=== PATIENT | male | born 1945 | race Caucasian/White ===

== ENCOUNTER 2016-09-11 17:12 | Inpatient (IN) ==
[2016-09-11] MEDS ORDERED: 0.9 % Sodium Chloride 1,000 ML IVC ONE (17:44)
--- NOTE | 2016-09-11 17:47 | Emergency Department Note ---
Disposition Clinical Impression: Small bowel obstruction Disposition: Admitted As Inpatient Condition: Fair Forms: Work/School Release, ED Satisfaction Letter Time of Disposition: 22:21 Abdominal Pain HPI - General Chief Complaint: ED Abdominal Pain Stated Complaint: Small bowel obstruction from [place] Time Seen by Provider: 09/11/16 17:22 Source: patient, family, EMS Mode of arrival: EMS Limitations: no limitations Nursing Notes Reviewed: Yes Vital Signs Reviewed: Yes - History of Present Illness HPI Narrative: Patient was transferred from the [facility] after diagnosis of small bowel truck she was made by clinical exam and x-rays of the abdomen. Pt Subjective Complaint: abdominal pain Onset (ago): week(s) (One week ago) Consistency: constant, Worsening Location: diffuse Pain Severity: severe Pain Scale: 7 Quality: cramping Improves with: nothing Worsens with: nothing Associated symptoms: Reports: nausea, vomiting, constipation. Denies: diarrhea Treatments prior to arrival: other (Had lab work and x-rays done at the [facility] prior to being transferred here.) - Related Data Home Medications Medication Instructions Recorded Confirmed 0.9 % Sodium Chloride Normal Bg 500 ml IV DAILY 09/11/16 09/11/16 Amlodipine Besylate 10 mg PO DAILY 09/11/16 09/11/16 Aspirin Enteric Coated [Aspirin EC] 81 mg PO DAILY 09/11/16 09/11/16 Atorvastatin Calcium [Lipitor] 80 mg PO HS 09/11/16 09/11/16 Insulin ASPART [NovoLOG] 10 unit SQ 1200 09/11/16 09/11/16 Insulin ASPART [NovoLOG] 14 unit SQ QPM 09/11/16 09/11/16 Insulin Glargine [Lantus] 44 unit SQ HS 09/11/16 09/11/16 Metformin HCl [Glucophage] 1,000 mg PO BID 09/11/16 09/11/16 Naproxen [Naprosyn] 500 mg PO BID 09/11/16 09/11/16 Pantoprazole Sodium [Protonix] 40 mg PO DAILY 09/11/16 09/11/16 Tramadol HCl [Ultram] 100 mg PO TID PRN 09/11/16 09/11/16 Vit C/E/Zn/Coppr/Lutein/Zeaxan 1 cap PO BID 09/11/16 09/11/16 [Preservision Areds 2 Softgel] cloNIDine HCl [Clonidine HCl] 0.2 mg PO BID 09/11/16 09/11/16 hydroCHLOROthiazide 25 mg PO DAILY 09/11/16 09/11/16 [Hydrochlorothiazide] metFORMIN [Glucophage] 500 mg PO 1200 09/11/16 09/11/16 Allergies Allergy/AdvReac Type Severity Reaction Status Date / Time No Known Allergies Allergy Verified 09/11/16 17:13 All systems ED: reviewed and negative except as stated. Constitutional: Denies: fever, chills Cardiovascular: Denies: chest pain, palpitations Respiratory: Denies: cough, dyspnea Musculoskeletal: Denies: back pain Integumentary: Denies: rash Neurological: Denies: headache Abdominal Pain PMH - Past Medical History Medical history: Reports: diabetes, hyperlipidemia, hypertension Male Surgical History: Reports: cholecystectomy, Tonsillectomy Psychiatric history: Reports: no psych history - Social History Smoking status: Current every day smoker Alcohol use: Reports: rarely Drug use: Reports: none Physical Exam - General Limitations: no limitations General appearance: alert, in no apparent distress - Head Head exam: atraumatic, normocephalic - Eye Eye exam: Present: normal appearance, PERRL, EOMI - ENT ENT exam: normal exam, normal oropharynx, mucous membranes dry, normal external ear exam - Neck Neck exam: Present: normal inspection, full ROM - Chest Chest inspection: Present: normal inspection, symmetric chest wall rise. Absent : tenderness - Respiratory Respiratory exam: Present: normal lung sounds bilaterally. Absent: respiratory distress - Cardiovascular Cardiovascular exam: Present: regular rate, normal rhythm, normal heart sounds - Abdominal Exam Abdominal exam: Present: tenderness (Mild diffuse tenderness), distention, hypoactive bowel sounds - Extremities Exam Extremities exam: Present: normal inspection, full ROM - Neurological Exam Neurological exam: Present: alert, oriented X3 - Psychiatric Psychiatric exam: Present: normal affect, normal mood - Skin Skin exam: Present: warm, dry. Absent: rash Course Course Narrative: Patient presents with abdominal distention, abdominal pain, nausea and vomiting that has been progressively worsening for the past week. My examination certainly seems consistent with a bowel obstruction. He was seen [place] the [place] prior to [place] and had flat and upright views of the abdomen which showed I will obstruction. I will put the NG in him and empty as much as I can. Then we will put oral contrast down that NG tube in order to get a CT scan to help us understand where this obstruction is coming from. The only surgeries had in the past was a laparoscopic cholecystectomy so I am concerned about pathology that is causing this obstruction. - Reevaluation(s) Reevaluation #1: CAT scan shows partial small bowel disruption. There is no indication for acute surgery. NG tube is in place and draining. We will arrange to have the patient omitted to the hospital. Time: 22:20 - Consultations Consultation #1: Roland hospitalist - I discussed this with the hospitalist at length. He is accepted the patient for admission. Time: 22:21 Vital Signs Temperature 98.9 F 09/11/16 17:16 Pulse Rate 97 09/11/16 17:16 Respiratory Rate 18 09/11/16 17:16 Blood Pressure 154/95 09/11/16 17:16 O2 Sat by Pulse Oximetry 93 09/11/16 17:16 Temperature 98.9 F 09/11/16 17:16 Pulse Rate 86 09/11/16 21:25 Respiratory Rate 18 09/11/16 21:25 Blood Pressure 170/77 09/11/16 21:25 O2 Sat by Pulse Oximetry 88 09/11/16 21:25 Oxygen Delivery Oxygen Delivery Room Air Abdominal Pain - Medical Records Medical records reviewed: Yes I reviewed the patient's medical records. - Lab Data Lab results reviewed: Yes I reviewed the patient's lab results. Lab results narrative: I reviewed the labs from the outside facility. - Radiology Data Radiology results reviewed: Yes I reviewed the patient's radiology results.
[2016-09-11] MEDS ORDERED: Naloxone 0.4 MG/ML INJ IVP PRN (22:29)
[2016-09-11] MEDS ORDERED: Dextrose Gel 15 GM PO PRN ×2 (22:35)
[2016-09-11] MEDS ORDERED: *HR* Dextrose 50 % in Water (Syg) 50 ML SYRINGE IVP PRN (22:35)
[2016-09-11] MEDS ORDERED: D5% in Water 1,000 ML IVC PRN (22:35)
[2016-09-11] MEDS ORDERED: Albuterol 2.5 MG/3 ML NEBULIZER IH PRN (23:23)
[2016-09-11] MEDS ORDERED: NON-FORMULARY MEDICATION 1 EACH EACH (Insulin Glargine [Lantus] 30 UNIT) SQ SCH (23:30)
--- NOTE | 2016-09-11 23:30 | Internal Med History&Physical ---
Date of Encounter: 09/11/16 Time of Encounter: 23:27 Assessment and Plan (1) Small bowel obstruction Current visit: Yes Status: Acute 1 patient has been experiencing abdominal pain distention nausea and vomiting approximate [address] of abdomen concerning for partial small bowel obstruction. Will make patient nothing by mouth 2 we will give IV fluids 3 NG to low wall suction 4 monitor electrolytes and replace as needed 5 consult surgery-order placed will need to be followed up with day team 6 Zofran for nausea 7 morphine for pain (2) Hypertension Current visit: No Status: Chronic 1 patient is presently nothing by mouth we will hold home medications. Hydralazine IV as needed for systolic greater than 160 Qualifiers: Hypertension type: essential hypertension Qualified Code(s): I10 - Essential (primary) hypertension (3) Diabetes Current visit: Yes Status: Chronic 1 patient is nothing by mouth Accu-Cheks every 6 hours with slight scale insulin we will give 30 units of Levemir tonight due to elevated blood sugar. We will continue to monitor. Qualifiers: Diabetes mellitus type: type 2 Diabetes mellitus complication status: without complication Diabetes mellitus oysterman insulin use: with longterm use Qualified Code(s): E11.9 - Type 2 diabetes mellitus without complications ; Z79.4 - nursing home (current) use of insulin (4) DVT prophylaxis Current visit: Yes [facility]: [facility] Internal Medicine - H&P: HPI Chief complaint: abd pain Admitted From: Emergency Dept Plans for Post Hospital Care: Home History of present illness: Mr. Castañeda is a 70 year old male past history of diabetes chronic back pain. Esophagus hypertension current smoker. According to the patient approximately one week ago, last , he began to experience abdominal pain and distention he then began to have episodes of vomiting since approximately once a day vomiting bile. He was unable to eat or drink without vomiting. Prior last he was having daily formed bowel movements now has been having very small loose stools with decrease amounts of flatus. He denies any fevers or chills chest pain shortness of breath. He presented to the [facility] with the above complaints. At the [facility] x-rays obtained flat upright views of the abdomen which showed obstruction. Patient was transferred to this facility for further workup and evaluation. Upon arrival to the ER and the NG was placed which returned green bile. He was given oral contrast via NG CT of abdomen was obtained . The CT results were concerning for partial small bowel obstruction. Lab work was obtained was no leukocytosis glucose is elevated at 409. Patient was given IV fluids he has been admitted for further workup and evaluation. Presently the patient does not appear to be in any respiratory distress. He denies any chest or abdominal pain. His lung sounds have faint expiratory wheezes throughout heart sounds are regular S1 and S2 with no rubs or clicks gallops murmurs noted. Abdomen is distended nontender with hypoactive bowel sounds. He is hemodynamically stable at this time review this case with Dr. Joyce who agrees with plan. Past Med Surg Social Fam HX - Past Medical History Medical history: diabetes, hyperlipidemia, hypertension Psychiatric history: no psych history - Social History Smoking Status: Current every day smoker Smokeless Tobacco Status: No Alcohol use: rarely Drug use: none - Additional Family History Additional family history: Reviewed and noncontributory Internal Medicine - H&P: Meds 0.9 % Sodium Chloride [place] Bg 500 ml IV DAILY 09/11/16 [History] Amlodipine Besylate 10 mg PO DAILY 09/11/16 [History] Aspirin Enteric Coated [Aspirin EC] 81 mg PO DAILY 09/11/16 [History] Atorvastatin Calcium [Lipitor] 80 mg PO HS 09/11/16 [History] Insulin ASPART [NovoLOG] 10 unit SQ 1200 09/11/16 [History] Insulin ASPART [NovoLOG] 14 unit SQ QPM 09/11/16 [History] Insulin Glargine [Lantus] 44 unit SQ HS 09/11/16 [History] Metformin HCl [Glucophage] 1,000 mg PO BID 09/11/16 [History] Naproxen [Naprosyn] 500 mg PO BID 09/11/16 [History] Pantoprazole Sodium [Protonix] 40 mg PO DAILY 09/11/16 [History] Tramadol HCl [Ultram] 100 mg PO TID PRN 09/11/16 [History] Vit C/E/Zn/Coppr/Lutein/Zeaxan [Preservision Areds 2 Softgel] 1 cap PO BID 09/11 [History] cloNIDine HCl [Clonidine HCl] 0.2 mg PO BID 09/11/16 [History] hydroCHLOROthiazide [Hydrochlorothiazide] 25 mg PO DAILY 09/11/16 [History] metFORMIN [Glucophage] 500 mg PO 1200 09/11/16 [History] Allergies No Known Allergies Allergy (Verified 09/11/16 17:13) All Systems PM: A 10-system review of systems was performed and is negative for pertinent findings except as documented above in the HPI. - Constitutional Constitutional: no chills, no fever(s), no night sweats - EENT Eyes: no change in vision, no discharge, no pain, no photophobia - Cardiovascular Cardiovascular ROS IM: no chest pain, no diaphoresis, no dyspnea, no lightheadedness, no palpitations, no syncope - Respiratory Respiratory: no cough, no dyspnea, no wheezing, no excessive phlegm production - Gastrointestinal Gastrointestinal: abdominal pain, constipation, early satiety, nausea, vomiting - Musculoskeletal Musculoskeletal ROS IM: no numbness, no tingling - Integumentary Integumentary IM: no rash, no unusual bruising - Neurological Neurological ROS: no confusion, no convulsions, no focal weakness, no numbness, no tingling, no tremor(s) - Hematologic/Lymphatic Hematologic/Lymphatic: no easy bruising - Constitutional Vitals: Temp Pulse Resp BP Pulse Ox 98.9 F 86 18 177/89 88 09/11/16 17:16 09/11/16 21:25 09/11/16 23:21 09/11/16 23:21 09/11/16 21:25 General appearance: Present: A&O X 3, answers questions appropriately - Head Head exam: Present: atraumatic, normocephalic - Eye Eye exam: Present: PERRL, conjuntiva pink, sclera anicteric - Neck Neck exam general surgery: Present: supple, trachea midline. Absent: lymphadenopathy - Respiratory Respiratory exam: Present: wheezes. Absent: accessory muscle use, rales, rhonchi - Cardiovascular Cardiovascular exam: Present: RRR, +S1, +S2. Absent: diastolic murmur, gallop, rubs, systolic murmur - GI/Abdominal GI/Abdominal exam: Present: distended, firm, hypoactive bowel sounds, no peritoneal signs. Absent: tenderness - Extremities Exam Extremities exam: Present: warm, radial pulses palpable and symetrical. Absent : calf tenderness, cyanotic, pedal edema - Neurological Exam Neurological exam: Present: CN II-XII intact, oriented X3, no focal deficits. Absent: pronater drift, facial droop, speech deficit - Skin Skin exam: Present: dry, intact Internal Med - H&P Results - Labs Labs: Lab work from [facility] drawn today CBC WBC 16.5 hemoglobin 16 hematocrit 47 platelets 263 CBC sodium 134 potassium 3.7 chloride 94 CO2 28 BUN 31 crit 1.30 glucose 40 9 GFR 57.8 - Diagnostic Studies Other Images Additional comments: Abdomen/Pelvis CT 09/11/16 19:50 IMPRESSION: 1. Dilatation of a long segment of small bowel with air-fluid level, with a possible transition point in right abdomen. Findings are worrisome for at least a partial small bowel obstruction. 2. Extensive sigmoid diverticulosis. No evidence of diverticulitis. 3. Normal appendix. 4. Prostatomegaly. 5. Status post cholecystectomy. D/ / 09/11/2016 20:22:09 Daryn Roberts MD / raheel Interpreting Provider: Daryn Roberts MD
[2016-09-12] MEDS: 0.9 % Sodium Chloride 1,000 ML IVC SCH ×3 (00:15→18:23)
[2016-09-12] MEDS: Insulin DETEMIR 100 UNIT/ML X5UNITS SQ SCH ×2 (00:23→20:50)
[2016-09-12] MEDS: Insulin LISPRO 300 UNITS/3 ML VIAL SQ SCH ×4 (00:23→18:19)
[2016-09-12] MEDS ORDERED: Nitroglycerin 1 INCH/GM PACKET TP ONE (03:04)
[2016-09-12] MEDS: Ipratropium/Albuterol Neb 3 ML IH SCH ×4 (04:15→22:42)
[2016-09-12] MEDS: *HR* Enoxaparin 40 MG/0.4 ML SYRINGE SQ SCH (05:34)
[2016-09-12] MEDS: Pantoprazole 40 MG VIAL IVP SCH (05:34)
[2016-09-12 06:20] LABS: Basophils # 0.1 K/mcL (0.0-0.2); Basophils % 0.7 %; Eosinophils # 0.5 K/mcL (0.0-0.6); Eosinophils % 4.4 %; Hematocrit 41.4 % (37.5-50.1); Hemoglobin 14.3 g/dL (12.9-16.9); Immature Granulocytes % 0.3 % (0-4); Lymphocytes # 2.2 K/mcL (0.6-4.6); Lymphocytes % 19.4 %; Mean Corpuscular HGB Conc 34.5 g/dL (31.6-35.5); Mean Corpuscular Hemoglobin 30.1 pg (28.0-33.3); Mean Corpuscular Volume 87.2 fL (83.0-100.0); Mean Platelet Volume 12.1 fL (9.4-12.4); Monocytes # 1.3 K/mcL (0.0-1.3); Monocytes % 11.6 %; Neutrophils # 7.1 K/mcL (1.6-8.9); Platelet Count 209 K/mcL (140-400); Red Blood Count 4.75 M/mcL (4.19-5.50); Red Cell Distribution Width 12.5 % (11.5-14.5); Segmented Neutrophils % 63.6 %
[2016-09-12 06:35] LABS: BUN/Creatinine Ratio 26 (6-26); Blood Urea Nitrogen 23 mg/dL (8-26); Calcium 8.9 mg/dL (8.6-10.8); Carbon Dioxide 31 mEq/L (19-29); Chloride 100 mEq/L (98-109); Glucose 166 mg/dL (70-99); Magnesium 1.2 mg/dL (1.6-2.6); Osmolality,Calculated 297 (280-300); Potassium 3.2 mEq/L (3.5-4.5); Sodium 140 mEq/L (136-145); eGFR For African Americans > 60 (> 60); eGFR For Non-African Americans > 60 (> 60)
[2016-09-12] MEDS ORDERED: Magnesium Sulfate 1 GM in D5% in Water 100 ML IVPB ONE (08:11)
[2016-09-12] MEDS: Potassium Chloride Elixir 20 MEQ/15 ML UDC PO SCH (09:22)
--- NOTE | 2016-09-12 10:29 | Internal Med Progress Note ---
Date of Encounter: 09/12/16 Time of Encounter: 10:25 - Assessment and plan (1) Small bowel obstruction Current Visit: Yes Status: Acute Assessment and plan: Patient clinically better today, with no abdominal pain, nausea or vomiting. Last bowel movement was yesterday morning, reports passing gas now. CT abdomen shows partial small bowel obstruction. Currently NG placed, surgery has been consulted, will observe for now. possible clamp NG tube and watch, will wait for surgical recommendation. continue iVF.keep NPO (2) Hypertension Current Visit: No Status: Chronic Assessment and plan: mildly elevated, 2/2 NPO status, hydralazine prn for systoilc >180 Qualifiers: Hypertension type: essential hypertension Qualified Code(s): I10 - Essential (primary) hypertension (3) Diabetes Current Visit: Yes Status: Chronic Assessment and plan: Continue Levemir and sliding scale insulin. Monitor fingersticks. Qualifiers: Diabetes mellitus type: type 2 Diabetes mellitus complication status: without complication Diabetes mellitus terminologist insulin use: with terminologist use Qualified Code(s): E11.9 - Type 2 diabetes mellitus without complications ; Z79.4 - long-term (current) use of insulin - Subjective Interval history: Patient admitted for partial small bowel obstructions, CT does not show any mechanical obstruction. Reports one-week history of diarrhea and vomiting, possible ileus secondary to post viral infection. Status post NG placement yesterday, reports that the abdominal pain is better, no nausea and the time of my assessment. Surgery has been consulted, patient nothing by mouth for now. - Constitutional Vitals: Temp Pulse Resp BP Pulse Ox 97.5 F L 79 18 173/64 93 09/12/16 06:50 09/12/16 06:50 09/12/16 06:50 09/12/16 06:50 09/12/16 06:50 General appearance: Present: A&O X 3, answers questions appropriately Exam: - Head Head exam: Present: atraumatic, normocephalic - Eye Eye exam: Present: PERRL, conjuntiva pink, sclera anicteric - Neck Neck exam general surgery: Present: supple, trachea midline. Absent: lymphadenopathy - Respiratory Respiratory exam: Present: wheezes. Absent: accessory muscle use, rales, rhonchi - Cardiovascular Cardiovascular exam: Present: RRR, +S1, +S2. Absent: diastolic murmur, gallop, rubs, systolic murmur - GI/Abdominal GI/Abdominal exam: Present: Mildly distended, nontender, bowel sounds are heard. Absent: tenderness - Extremities Exam Extremities exam: Present: warm, radial pulses palpable and symetrical. Absent : calf tenderness, cyanotic, pedal edema - Neurological Exam Neurological exam: Present: CN II-XII intact, oriented X3, no focal deficits. Absent: pronater drift, facial droop, speech deficit - Skin Skin exam: Present: dry, intact Internal Medicine: Result - Labs CBC & Chem 7: 09/12/16 05:40 09/12/16 05:40 Labs: Short CBC 09/12/16 Range/Units 05:40 WBC 11.2 H (4.3-11.1) K/mcL Hgb 14.3 (12.9-16.9) g/dL Hct 41.4 (37.5-50.1) % Plt Count 209 (140-400) K/mcL Neutrophils # 7.1 (1.6-8.9) K/mcL BMP 09/12/16 05:40 Sodium 140 Potassium 3.2 L Chloride 100 Carbon Dioxide 31 H BUN 23 Creatinine 0.90 Glucose 166 H Calcium 8.9 Consult Discharge Plan - Plan [facility]errals: [facility] [Primary Care Provider] -
[2016-09-12] MEDS: amLODIPine 5 MG TABLET PO SCH (13:31)
[2016-09-12] MEDS: cloNIDine HCl 0.1 MG TABLET PO SCH (20:25)
[2016-09-13] MEDS: Insulin LISPRO 300 UNITS/3 ML VIAL SQ SCH ×4 (01:23→17:03)
[2016-09-13] MEDS: *HR* Morphine 2 MG/ML SYRINGE IVP PRN ×2 (02:37→17:04)
[2016-09-13] MEDS ORDERED: 0.9 % Sodium Chloride 1,000 ML ONE (02:41)
[2016-09-13] MEDS: Ondansetron 4 MG/2 ML VIAL IVP PRN ×2 (02:44→17:10)
[2016-09-13] MEDS: 0.9 % Sodium Chloride 1,000 ML IVC SCH ×3 (02:52→17:06)
[2016-09-13] MEDS ORDERED: *HR* HYDROmorphone 2 MG/ML SYRINGE IVP ONE (03:21)
[2016-09-13] MEDS: Ipratropium/Albuterol Neb 3 ML IH SCH ×4 (04:16→22:00)
[2016-09-13] MEDS: *HR* Enoxaparin 40 MG/0.4 ML SYRINGE SQ SCH (06:25)
[2016-09-13] MEDS: Pantoprazole 40 MG VIAL IVP SCH (06:25)
[2016-09-13 08:11] LABS: Basophils % 0.3 %; Eosinophils # 0.1 K/mcL (0.0-0.6); Eosinophils % 0.8 %; Hematocrit 42.3 % (37.5-50.1); Hemoglobin 14.4 g/dL (12.9-16.9); Immature Granulocytes % 0.4 % (0-4); Lymphocytes # 1.4 K/mcL (0.6-4.6); Lymphocytes % 9.5 %; Mean Corpuscular Hemoglobin 30.7 pg (28.0-33.3); Mean Corpuscular Volume 90.2 fL (83.0-100.0); Mean Platelet Volume 11.4 fL (9.4-12.4); Monocytes # 1.1 K/mcL (0.0-1.3); Monocytes % 7.3 %; Platelet Count 191 K/mcL (140-400); Red Blood Count 4.69 M/mcL (4.19-5.50); Red Cell Distribution Width 12.7 % (11.5-14.5); Segmented Neutrophils % 81.7 %
[2016-09-13 08:27] LABS: BUN/Creatinine Ratio 15 (6-26); Calcium 8.5 mg/dL (8.6-10.8); Carbon Dioxide 24 mEq/L (19-29); Chloride 106 mEq/L (98-109); Glucose 173 mg/dL (70-99); Osmolality,Calculated 290 (280-300); Potassium 3.3 mEq/L (3.5-4.5); Sodium 138 mEq/L (136-145); eGFR For African Americans > 60 (> 60); eGFR For Non-African Americans > 60 (> 60)
[2016-09-13 08:28] LABS: Blood Urea Nitrogen 12 mg/dL (8-26)
[2016-09-13] MEDS: cloNIDine HCl 0.1 MG TABLET PO SCH ×2 (08:32→20:37)
[2016-09-13] MEDS: Aspirin Enteric Coated 81 MG Tablet PO SCH (08:32)
[2016-09-13] MEDS: Potassium Chloride Elixir 20 MEQ/15 ML UDC PO SCH (08:33)
[2016-09-13] MEDS: amLODIPine 5 MG TABLET PO SCH (08:33)
--- NOTE | 2016-09-13 11:21 | Internal Med Progress Note ---
Date of Encounter: 09/13/16 Time of Encounter: 11:17 - Assessment and plan (1) Small bowel obstruction Current Visit: Yes Status: Acute Assessment and plan: severe abdominal pain after bowel movement last night repeat CT with signs of persistent partial to complete SBO with signs concerning for possible mesenteric ischemia abdominal pain is better he says this morn, he got a dose of dilaudid this morning, still rates his pain as 6. lactic acid is normal, less likely mesenteric ischemia Currently NPO, surgery has been consulted, will observe for now. will wait for surgical recommendation. continue iVF.keep NPO (2) Hypertension Current Visit: No Status: Chronic Assessment and plan: mildly elevated, 2/2 NPO status, hydralazine prn for systoilc >180 Qualifiers: Hypertension type: essential hypertension Qualified Code(s): I10 - Essential (primary) hypertension (3) Diabetes Current Visit: Yes Status: Chronic Assessment and plan: Continue Levemir and sliding scale insulin. Monitor fingersticks. Qualifiers: Diabetes mellitus type: type 2 Diabetes mellitus complication status: without complication Diabetes mellitus energy conservation specialist insulin use: with chcf use Qualified Code(s): E11.9 - Type 2 diabetes mellitus without complications ; Z79.4 - [facility] (current) use of insulin - Subjective Interval history: Patient admitted for partial small bowel obstructions, CT does not show any mechanical obstruction. NGT was accidentally removed yesterday, started on clear liquids after passing gas and a bowel movement. However at night he had severe abdominal pain, CT abdomen was repeated by the , showed persistent partial to complete small bowel up structure and with signs concerning for mesenteric ischemia. This morning he still rates his abdominal pain as 6, but says it is better than last night, denies any nausea or vomiting. Surgery has been consulted, patient nothing by mouth for now. - Constitutional Vitals: Temp Pulse Resp BP Pulse Ox 98.0 F 90 20 165/66 91 09/13/16 07:52 09/13/16 07:52 09/13/16 10:54 09/13/16 07:52 09/13/16 10:54 General appearance: Present: A&O X 3, answers questions appropriately Exam: - Head Head exam: Present: atraumatic, normocephalic - Eye Eye exam: Present: PERRL, conjuntiva pink, sclera anicteric - Neck Neck exam general surgery: Present: supple, trachea midline. Absent: lymphadenopathy - Respiratory Respiratory exam: Present: wheezes. Absent: accessory muscle use, rales, rhonchi - Cardiovascular Cardiovascular exam: Present: RRR, +S1, +S2. Absent: diastolic murmur, gallop, rubs, systolic murmur - GI/Abdominal GI/Abdominal exam: Present: Mildly distended, mild tenderness in marcelo epigasric region, bowel sounds are heard. - Extremities Exam Extremities exam: Present: warm, radial pulses palpable and symetrical. Absent : calf tenderness, cyanotic, pedal edema - Neurological Exam Neurological exam: Present: CN II-XII intact, oriented X3, no focal deficits. Absent: pronater drift, facial droop, speech deficit - Skin Skin exam: Present: dry, intact Internal Medicine: Result - Labs CBC & Chem 7: 09/13/16 08:02 09/13/16 08:02 Labs: Short CBC 09/13/16 Range/Units 08:02 WBC 14.6 H (4.3-11.1) K/mcL Hgb 14.4 (12.9-16.9) g/dL Hct 42.3 (37.5-50.1) % Plt Count 191 (140-400) K/mcL Neutrophils # 12.0 H (1.6-8.9) K/mcL BMP 09/13/16 08:02 Sodium 138 Potassium 3.3 L Chloride 106 Carbon Dioxide 24 BUN 12 D Creatinine 0.80 Glucose 173 H Calcium 8.5 L - Impressions Impressions Abdomen/Pelvis CT 09/13/16 03:22 IMPRESSION: 1. Continued findings of small-bowel obstruction, early complete or partial with transition in the right lower quadrant. 2. There is now portal venous gas seen within the liver and in the mesenteric veins. No pneumatosis is identified and a definite source is not identified. Correlate with any evidence of bowel ischemia. 3. Colonic diverticulosis without evidence of acute diverticulitis. D/ / Bill Mcguire MD / Bill Mcguire MD Interpreting Provider: Bill Mcguire MD Consult Discharge Plan - Plan [facility]errals: [facility] [Primary Care Provider] -
[2016-09-14] MEDS: Insulin LISPRO 300 UNITS/3 ML VIAL SQ SCH ×4 (00:19→18:40)
[2016-09-14] MEDS: 0.9 % Sodium Chloride 1,000 ML IVC SCH ×2 (03:38→15:35)
[2016-09-14] MEDS: Ipratropium/Albuterol Neb 3 ML IH SCH ×2 (04:25→11:05)
[2016-09-14] MEDS: *HR* Enoxaparin 40 MG/0.4 ML SYRINGE SQ SCH (06:33)
[2016-09-14] MEDS: Pantoprazole 40 MG VIAL IVP SCH (06:33)
[2016-09-14 08:04] LABS: BUN/Creatinine Ratio 19 (6-26); Blood Urea Nitrogen 17 mg/dL (8-26); Calcium 8.1 mg/dL (8.6-10.8); Carbon Dioxide 22 mEq/L (19-29); Chloride 110 mEq/L (98-109); Glucose 161 mg/dL (70-99); Osmolality,Calculated 293 (280-300); Potassium 3.6 mEq/L (3.5-4.5); Sodium 139 mEq/L (136-145); eGFR For African Americans > 60 (> 60); eGFR For Non-African Americans > 60 (> 60)
[2016-09-14 08:12] LABS: Basophils # 0.1 K/mcL (0.0-0.2); Basophils % 0.4 %; Eosinophils # 0.2 K/mcL (0.0-0.6); Eosinophils % 1.8 %; Hematocrit 40.3 % (37.5-50.1); Hemoglobin 13.4 g/dL (12.9-16.9); Immature Granulocytes % 0.3 % (0-4); Lymphocytes # 1.1 K/mcL (0.6-4.6); Lymphocytes % 9.1 %; Mean Corpuscular HGB Conc 33.3 g/dL (31.6-35.5); Mean Corpuscular Volume 90.2 fL (83.0-100.0); Mean Platelet Volume 11.8 fL (9.4-12.4); Monocytes # 1.6 K/mcL (0.0-1.3); Monocytes % 13.1 %; Platelet Count 173 K/mcL (140-400); Red Blood Count 4.47 M/mcL (4.19-5.50); Red Cell Distribution Width 12.8 % (11.5-14.5); Segmented Neutrophils % 75.3 %
[2016-09-14] MEDS: amLODIPine 5 MG TABLET PO SCH (09:13)
[2016-09-14] MEDS: cloNIDine HCl 0.1 MG TABLET PO SCH ×2 (09:13→21:52)
[2016-09-14] MEDS: Aspirin Enteric Coated 81 MG Tablet PO SCH (09:13)
[2016-09-14] MEDS: Potassium Chloride Elixir 20 MEQ/15 ML UDC PO SCH (09:14)
--- NOTE | 2016-09-14 12:28 | General Surgery Consult Note ---
Date of Encounter: 09/14/16 Time of Encounter: 11:00 Assessment and Plan (1) Abnormal abdominal CT scan Current Visit: Yes Status: Acute The patient appears to have a resolving partial bowel obstruction that has been complicated by portal venous gas. I cannot identify on physical examination or on CAT scan any areas of small bowel necrosis. He has a very mild leukocytosis. I think it is reasonable to assume that he has had no episode of enterocolitis that has resulted in some mucosal necrosis. I would start him on ciprofloxacin and Flagyl. I would repeat his physical examination. Since his exam is totally normal and he is not having any abdominal pain over and start him on clear liquids. I will be glad to follow along with you. History of Present Illness Consult date: 09/14/16 Reason for consult: abdominal pain History of present illness: The patient has had about one week of abdominal pain. Initially had a good deal of diarrhea and this tapered off. His abdominal pain was crampy and central in nature. This is associated with nausea and no vomiting. He was evaluated with CAT scan of the abdomen and admitted to the hospital. He initially had some pneumatosis of the bowel and a follow-up CAT scan demonstrated portal venous gas. His abdominal pain subsided and today on physical examination he is not complaining of any abdominal pain at all. He has no nausea or vomiting. He is passing flatus. He is hungry. I personally reviewed the CAT scan of the abdomen. I cannot identify any areas of small bowel inflammation or necrosis. He does have dilated proximal small bowel in comparison to his distal small bowel. There is air in the portal venous system. I do not see any pneumatosis Past Med Surg Social Fam HX - Past Medical History Medical history: diabetes, hyperlipidemia, hypertension Psychiatric history: no psych history - Past Surgical History Surgical History: cholecystectomy - Social History Smoking Status: Current every day smoker Packs per day: 0.5 Smokeless Tobacco Status: No Alcohol use: rarely Drug use: none - Family History Mother Living Status: Hx Family Cardiac Disorders: Yes Medications and Allergies 0.9 % Sodium Chloride [place] Bg 500 ml IV DAILY 09/11/16 [History] Amlodipine Besylate 10 mg PO DAILY 09/11/16 [History] Aspirin Enteric Coated [Aspirin EC] 81 mg PO DAILY 09/11/16 [History] Atorvastatin Calcium [Lipitor] 80 mg PO HS 09/11/16 [History] Insulin ASPART [NovoLOG] 10 unit SQ 1200 09/11/16 [History] Insulin ASPART [NovoLOG] 14 unit SQ QPM 09/11/16 [History] Insulin Glargine [Lantus] 44 unit SQ HS 09/11/16 [History] Metformin HCl [Glucophage] 1,000 mg PO BID 09/11/16 [History] Naproxen [Naprosyn] 500 mg PO BID 09/11/16 [History] Pantoprazole Sodium [Protonix] 40 mg PO DAILY 09/11/16 [History] Tramadol HCl [Ultram] 100 mg PO TID PRN 09/11/16 [History] Vit C/E/Zn/Coppr/Lutein/Zeaxan [Preservision Areds 2 Softgel] 1 cap PO BID 09/11 [History] cloNIDine HCl [Clonidine HCl] 0.2 mg PO BID 09/11/16 [History] hydroCHLOROthiazide [Hydrochlorothiazide] 25 mg PO DAILY 09/11/16 [History] metFORMIN [Glucophage] 500 mg PO 1200 09/11/16 [History] Allergies No Known Allergies Allergy (Verified 09/11/16 17:13) Review of Systems All systems PM: A 10-system review of systems was performed and is negative for pertinent findings except as documented above in the HPI. General Surgery Exam Initial Vital Signs Temp Pulse Resp BP Pulse Ox 98.9 F 97 18 154/95 93 09/11/16 17:16 09/11/16 17:16 09/11/16 17:16 09/11/16 17:16 09/11/16 17:16 - General physical appearance well developed, well nourished, no distress - Neck no masses, no bruits, trachea midline, no lymphadectomy, no venous distension - Respiratory normal expansion, normal respiratory effort, clear to percussion, clear to auscultation - Cardiovascular Cardiovascular exam: Present: RRR, no murmurs/rubs/gallops - Abdomen Abdomen general surgery: Present: bowel sounds present, soft, non tender Hernia: Present: none - Neurologic Present: CN 2-12 grossly intact, normal coordination, normal sensation - Psychiatric Psychiatric general surgery: Present: appropriate, oriented to person, oriented to place, oriented to time, speech is normal, memory intact Exam Initial Vital Signs Temp Pulse Resp BP Pulse Ox 98.9 F 97 18 154/95 93 09/11/16 17:16 09/11/16 17:16 09/11/16 17:16 09/11/16 17:16 09/11/16 17:16 Results - Labs 09/14/16 07:44 09/14/16 07:44 Abnormal lab results WBC 11.9 K/mcL (4.3-11.1) H 09/14/16 07:44 Neutrophils # 9.0 K/mcL (1.6-8.9) H 09/14/16 07:44 Monocytes # 1.6 K/mcL (0.0-1.3) H 09/14/16 07:44 Chloride 110 mEq/L (98-109) H 09/14/16 07:44 Glucose 161 mg/dL (70-99) H 09/14/16 07:44 POC Glucose 157 (58-89) H 09/14/16 11:20 Calcium 8.1 mg/dL (8.6-10.8) L 09/14/16 07:44 Magnesium 1.2 mg/dL (1.6-2.6) L 09/12/16 05:40 Diabetes panel 09/14/16 Range/Units 07:44 Sodium 139 (136-145) mEq/L Potassium 3.6 (3.5-4.5) mEq/L Chloride 110 H (98-109) mEq/L Carbon Dioxide 22 (19-29) mEq/L BUN 17 (8-26) mg/dL Creatinine 0.89 (0.72-1.25) mg/dL Glucose 161 H (70-99) mg/dL Calcium 8.1 L (8.6-10.8) mg/dL Calcium panel 09/14/16 Range/Units 07:44 Calcium 8.1 L (8.6-10.8) mg/dL Pituitary panel 09/14/16 Range/Units 07:44 Sodium 139 (136-145) mEq/L Potassium 3.6 (3.5-4.5) mEq/L Chloride 110 H (98-109) mEq/L Carbon Dioxide 22 (19-29) mEq/L BUN 17 (8-26) mg/dL Creatinine 0.89 (0.72-1.25) mg/dL Glucose 161 H (70-99) mg/dL Calcium 8.1 L (8.6-10.8) mg/dL Adrenal panel 09/14/16 Range/Units 07:44 Sodium 139 (136-145) mEq/L Potassium 3.6 (3.5-4.5) mEq/L Chloride 110 H (98-109) mEq/L Carbon Dioxide 22 (19-29) mEq/L BUN 17 (8-26) mg/dL Creatinine 0.89 (0.72-1.25) mg/dL Glucose 161 H (70-99) mg/dL Calcium 8.1 L (8.6-10.8) mg/dL All other labs normal. - Imaging CT scan - abdomen: image reviewed (I personally reviewed the CAT scan of the abdomen. He does have portal venous air. His white blood cell count is 11, 900. There are no findings that suggest small bowel necrosis. There is a diameter difference between his proximal and distal small bowel) Consult Discharge Plan - Plan [facility]errals: [facility] [Primary Care Provider] -
[2016-09-14] MEDS ORDERED: metroNIDAZOLE 500 MG TABLET PO SCH (13:00)
--- NOTE | 2016-09-14 13:53 | Internal Med Progress Note ---
Date of Encounter: 09/14/16 Time of Encounter: 13:50 - Assessment and plan (1) Small bowel obstruction Current Visit: Yes Status: Acute Assessment and plan: repeat CT with signs of persistent partial to complete SBO with signs concerning for possible mesenteric ischemia He denies any abdominal pain at this time, no nausea or vomiting. lactic acid is normal, general surgery has been consulted, recommended antibiotics at this time for concern of possible enterocolitis leading to mucosal necrosis, noted as portal vein gas in the CT scan, Given asymptomatic, we will start clear liquid diet today. Advanced the diet gradually as tolerated. Appreciate surgical recommendations. (2) Hypertension Current Visit: No Status: Chronic Assessment and plan: mildly elevated, 2/2 NPO status, hydralazine prn for systoilc >180 Qualifiers: Hypertension type: essential hypertension Qualified Code(s): I10 - Essential (primary) hypertension (3) Diabetes Current Visit: Yes Status: Chronic Assessment and plan: Continue Levemir and sliding scale insulin. Monitor fingersticks. Qualifiers: Diabetes mellitus type: type 2 Diabetes mellitus complication status: without complication Diabetes mellitus parts counterman insulin use: with parts counterman use Qualified Code(s): E11.9 - Type 2 diabetes mellitus without complications ; Z79.4 - jail (current) use of insulin - Subjective Interval history: Patient admitted for partial small bowel obstructions, CT does not show any mechanical obstruction. repeat CT abdomen showed persistent partial to complete small bowel up structure and with signs concerning for mesenteric ischemia. Has been nothing by mouth for 1 day, denies any abdominal pain, nausea or vomiting at this time. Gen. surgery has been consulted for possible concern of mesenteric ischemia. - Constitutional Vitals: Temp Pulse Resp BP Pulse Ox 97.7 F 82 18 159/67 93 09/14/16 11:18 09/14/16 11:18 09/14/16 11:18 09/14/16 11:18 09/14/16 11:18 General appearance: Present: A&O X 3, answers questions appropriately Exam: Head Head exam: Present: atraumatic, normocephalic - Eye Eye exam: Present: PERRL, conjuntiva pink, sclera anicteric - Neck Neck exam general surgery: Present: supple, trachea midline. Absent: lymphadenopathy - Respiratory Respiratory exam: Present: wheezes. Absent: accessory muscle use, rales, rhonchi - Cardiovascular Cardiovascular exam: Present: RRR, +S1, +S2. Absent: diastolic murmur, gallop, rubs, systolic murmur - GI/Abdominal GI/Abdominal exam: Present: Mildly distended, nontender,, bowel sounds are heard. - Extremities Exam Extremities exam: Present: warm, radial pulses palpable and symetrical. Absent : calf tenderness, cyanotic, pedal edema - Neurological Exam Neurological exam: Present: CN II-XII intact, oriented X3, no focal deficits. Absent: pronater drift, facial droop, speech deficit - Skin Skin exam: Present: dry, intact Internal Medicine: Result - Labs CBC & Chem 7: 09/14/16 07:44 09/14/16 07:44 Labs: Short CBC 09/14/16 Range/Units 07:44 WBC 11.9 H (4.3-11.1) K/mcL Hgb 13.4 (12.9-16.9) g/dL Hct 40.3 (37.5-50.1) % Plt Count 173 (140-400) K/mcL Neutrophils # 9.0 H (1.6-8.9) K/mcL BMP 09/14/16 07:44 Sodium 139 Potassium 3.6 Chloride 110 H Carbon Dioxide 22 BUN 17 Creatinine 0.89 Glucose 161 H Calcium 8.1 L Consult Discharge Plan - Plan [facility]errals: [facility] [Primary Care Provider] -
[2016-09-14] MEDS: metroNIDAZOLE 500 MG TABLET PO SCH (18:40)
[2016-09-15] MEDS: Insulin LISPRO 300 UNITS/3 ML VIAL SQ SCH (01:14)
[2016-09-15] MEDS: 0.9 % Sodium Chloride 1,000 ML IVC SCH (01:17)
[2016-09-15] MEDS: Pantoprazole 40 MG VIAL IVP SCH (05:34)
[2016-09-15 07:01] LABS: Basophils # 0.1 K/mcL (0.0-0.2); Basophils % 0.6 %; Eosinophils # 0.9 K/mcL (0.0-0.6); Eosinophils % 9.1 %; Hematocrit 37.3 % (37.5-50.1); Hemoglobin 12.6 g/dL (12.9-16.9); Immature Granulocytes % 0.5 % (0-4); Lymphocytes # 1.4 K/mcL (0.6-4.6); Lymphocytes % 14.5 %; Mean Corpuscular HGB Conc 33.8 g/dL (31.6-35.5); Mean Corpuscular Hemoglobin 30.1 pg (28.0-33.3); Mean Corpuscular Volume 89.2 fL (83.0-100.0); Mean Platelet Volume 12.1 fL (9.4-12.4); Monocytes % 10.4 %; Neutrophils # 6.4 K/mcL (1.6-8.9); Platelet Count 145 K/mcL (140-400); Red Blood Count 4.18 M/mcL (4.19-5.50); Red Cell Distribution Width 12.7 % (11.5-14.5); Segmented Neutrophils % 64.9 %
[2016-09-15 07:26] LABS: BUN/Creatinine Ratio 13 (6-26); Blood Urea Nitrogen 10 mg/dL (8-26); Calcium 7.6 mg/dL (8.6-10.8); Carbon Dioxide 20 mEq/L (19-29); Chloride 110 mEq/L (98-109); Glucose 190 mg/dL (70-99); Osmolality,Calculated 288 (280-300); Potassium 3.4 mEq/L (3.5-4.5); Sodium 137 mEq/L (136-145); eGFR For African Americans > 60 (> 60); eGFR For Non-African Americans > 60 (> 60)
[2016-09-15] MEDS ORDERED: Insulin LISPRO 300 UNITS/3 ML VIAL SQ SCH ×2 (07:30→21:00)
[2016-09-15] MEDS: *HR* Enoxaparin 40 MG/0.4 ML SYRINGE SQ SCH (08:36)
[2016-09-15] MEDS: Aspirin Enteric Coated 81 MG Tablet PO SCH (08:38)
[2016-09-15] MEDS: Potassium Chloride Elixir 20 MEQ/15 ML UDC PO SCH (08:38)
[2016-09-15] MEDS: cloNIDine HCl 0.1 MG TABLET PO SCH (08:38)
[2016-09-15] MEDS: metroNIDAZOLE 500 MG TABLET PO SCH (08:38)
[2016-09-15] MEDS: amLODIPine 5 MG TABLET PO SCH (08:38)
--- NOTE | 2016-09-15 08:44 | General Surgery Progress Note ---
Date of Encounter: 09/15/16 Time of Encounter: 08:00 - Assessment and Plan (1) Abnormal abdominal CT scan Current Visit: Yes Status: Acute The patient appears to have a resolving partial bowel obstruction that has been complicated by portal venous gas. I cannot identify on physical examination or on CAT scan any areas of small bowel necrosis. He has a very mild leukocytosis. I think it is reasonable to assume that he has had no episode of enterocolitis that has resulted in some mucosal necrosis. I would start him on ciprofloxacin and Flagyl. I would repeat his physical examination. Since his exam is totally normal and he is not having any abdominal pain over and start him on clear liquids. I will be glad to follow along with you. 09/15/2016. The patient has no abdominal pain at all. He is having bowel movements. I think it is reasonable to advance his diet. There is no evidence of surgical abdomen Subjective Narrative: The patient has no complaints of abdominal pain. He is having bowel movements. His white blood cell count is normalized. He is not having any fevers. At this point I think it is reasonable to advance his diet. There is no evidence of surgical abdomen Objective Vital Signs - Last 8 Hours Temp Pulse Resp BP Pulse Ox 09/15/16 07:20 98.4 F 78 16 172/70 93 09/15/16 05:19 97.7 F 68 18 149/66 93 Intake and Output 09/14/16 09/15/16 09/15/16 23:59 07:59 15:59 Intake Total 1040 / 1040 1000 / 1000 Output Total 0 / 0 450 / 450 Balance 1040 / 1040 550 / 550 Intake: IV Fluids 1000 / 1000 0.9 % Sodium Chloride 1, 1000 / 1000 000 ML @ 100 mls/hr IVC . Q10H NIKHIL Rx#:[id number] Oral 1040 / 1040 0 / 0 Output: Urine 0 / 0 450 / 450 Other: # Voids 2 Weight 92.487 kg Blood Glucose* 167 176 Patient Weight 09/15/16 23:59 Weight 92.487 kg - General physical appearance well developed, well nourished, obese - Respiratory normal expansion, normal respiratory effort, clear to percussion, clear to auscultation - Cardiovascular Cardiovascular exam: Present: RRR, distant heart sounds - Abdomen Abdomen: Present: bowel sounds present, soft, non tender - Labs 09/15/16:37 09/15/16 06:37 Diabetes panel 09/15/16 Range/Units 06:37 Sodium 137 (136-145) mEq/L Potassium 3.4 L (3.5-4.5) mEq/L Chloride 110 H (98-109) mEq/L Carbon Dioxide 20 (19-29) mEq/L BUN 10 (8-26) mg/dL Creatinine 0.78 (0.72-1.25) mg/dL Glucose 190 H (70-99) mg/dL Calcium 7.6 L (8.6-10.8) mg/dL Calcium panel 09/15/16 Range/Units 06:37 Calcium 7.6 L (8.6-10.8) mg/dL Pituitary panel 09/15/16 Range/Units 06:37 Sodium 137 (136-145) mEq/L Potassium 3.4 L (3.5-4.5) mEq/L Chloride 110 H (98-109) mEq/L Carbon Dioxide 20 (19-29) mEq/L BUN 10 (8-26) mg/dL Creatinine 0.78 (0.72-1.25) mg/dL Glucose 190 H (70-99) mg/dL Calcium 7.6 L (8.6-10.8) mg/dL Adrenal panel 09/15/16 Range/Units 06:37 Sodium 137 (136-145) mEq/L Potassium 3.4 L (3.5-4.5) mEq/L Chloride 110 H (98-109) mEq/L Carbon Dioxide 20 (19-29) mEq/L BUN 10 (8-26) mg/dL Creatinine 0.78 (0.72-1.25) mg/dL Glucose 190 H (70-99) mg/dL Calcium 7.6 L (8.6-10.8) mg/dL Consult Discharge Plan - Plan [facility]errals: [facility] [Primary Care Provider] -
[2016-09-15 11:04] VITALS: BP 144/65
--- NOTE | 2016-09-15 12:00 | Discharge Summary ---
Date of Encounter: 09/15/16 Time of Encounter: 11:58 - Discharge Diagnosis (1) Small bowel obstruction Priority: Primary Status: Acute (2) Hypertension Priority: Secondary Status: Chronic Qualifiers: Hypertension type: essential hypertension Qualified Code(s): I10 - Essential (primary) hypertension (3) Diabetes Priority: Secondary Status: Chronic Qualifiers: Diabetes mellitus type: type 2 Diabetes mellitus complication status: without complication Diabetes mellitus half-way insulin use: with guest services lead use Qualified Code(s): E11.9 - Type 2 diabetes mellitus without complications ; Z79.4 - outside machinist (current) use of insulin - Discharge Medications Prescriptions: Calcium Carbonate [Calcium] 500 mg PO TID 7 Days Ciprofloxacin [Cipro] 500 mg PO BID 5 Days metroNIDAZOLE [Flagyl] 500 mg PO TIDWM 5 Days Potassium Chloride Elixir [Potassium Chloride] 40 meq PO DAILY 2 Days Home Medications: 0.9 % Sodium Chloride [place] Bg 500 ml IV DAILY 09/11/16 [History] Amlodipine Besylate 10 mg PO DAILY 09/11/16 [History] Aspirin Enteric Coated [Aspirin EC] 81 mg PO DAILY 09/11/16 [History] Atorvastatin Calcium [Lipitor] 80 mg PO HS 09/11/16 [History] Insulin ASPART [NovoLOG] 10 unit SQ 1200 09/11/16 [History] Insulin ASPART [NovoLOG] 14 unit SQ QPM 09/11/16 [History] Insulin Glargine [Lantus] 44 unit SQ HS 09/11/16 [History] Metformin HCl [Glucophage] 1,000 mg PO BID 09/11/16 [History] Naproxen [Naprosyn] 500 mg PO BID 09/11/16 [History] Pantoprazole Sodium [Protonix] 40 mg PO DAILY 09/11/16 [History] Tramadol HCl [Ultram] 100 mg PO TID PRN 09/11/16 [History] Vit C/E/Zn/Coppr/Lutein/Zeaxan [Preservision Areds 2 Softgel] 1 cap PO BID 09/11 [History] cloNIDine HCl [Clonidine HCl] 0.2 mg PO BID 09/11/16 [History] hydroCHLOROthiazide [Hydrochlorothiazide] 25 mg PO DAILY 09/11/16 [History] metFORMIN [Glucophage] 500 mg PO 1200 09/11/16 [History] Calcium Carbonate [Calcium] 500 mg PO TID 7 Days 09/15/16 [Rx] Ciprofloxacin [Cipro] 500 mg PO BID 5 Days 09/15/16 [Rx] Potassium Chloride Elixir [Potassium Chloride] 40 meq PO DAILY 2 Days 09/15/16 [ Rx] metroNIDAZOLE [Flagyl] 500 mg PO TIDWM 5 Days 09/15/16 [Rx] Allergies/Adverse Reactions: Allergies No Known Allergies Allergy (Verified 09/11/16 17:13) Procedures/tests Complete & Pending: Procedures Performed prior 72 hours Category Date Time Status CT abd pelvis wo no iv no oral [CT] Stat Cat Scan 09/13/16 03:22 Completed Date of admission: 09/11/16 23:23 [facility]: [facility] Consults: 09/13/16 09:37 Consult to Surgery [CONS] Routine Consulting Provider: Herman Foreman Surgical Reason for Consult: please evaluate this patient presenting with SBO, had severe pain last night, repeat CT showing signs concerning for ?meseteric ischemia. Call Completed: Yes Discharging clinician: Myriam Diaz Anticipated date of discharge: 09/15/16 - Patient Status Disposition: Home, Self-Care Condition: Fair Functional capacity at discharge: independent ambulation Overall status at discharge: patient is back to baseline - Discharge Instructions Follow Up With: [facility] [Primary Care Provider[facility] - ([facility] will call patient with date and time. Thank you) - Diet and Activity Activity: resume usual activities as tolerated Diet: other (soft diet for 1 week) Interval History: Mr. Castañeda is a 70 year old male past history of diabetes chronic back pain. Esophagus hypertension current smoker. According to the patient approximately one week ago, last , he began to experience abdominal pain and distention he then began to have episodes of vomiting since approximately once a day vomiting bile. He presented to the [facility] , At the [facility] x-rays obtained flat upright views of the abdomen which showed obstruction. Patient was transferred to this facility for further workup and evaluation. Upon arrival to the ER and the NG was placed which returned green bile. He was given oral contrast via NG CT of abdomen was obtained . The CT results were concerning for partial small bowel obstruction. Lab work was obtained was no leukocytosis glucose is elevated at 409. Patient was given IV fluids he has been admitted for further workup and evaluation. He was initiated with conservative management, however the second day he had severe abdominal pain which necessitated repeat CAT scan of the abdomen. The patient appears to have a resolving partial bowel obstruction, however a follow-up CAT scan demonstrated portal venous gas . General surgery was consulted. He has a very mild leukocytosis. It was assumed that he probably had an episode of enterocolitis that has resulted in some mucosal necrosis. He was started on ciprofloxacin and Flagyl. He was observed on soft diet, he did not have any worsening of abdominal pain or nausea or vomiting. His abdominal exam is soft and nontender, he had good bowel movements. He is being discharged today on oral Cipro and Flagyl to complete 5 days, he will follow up with his PCP at [facility] after discharge. Hospital course: Mr. Castañeda is a 70 year old male - Time Spent with Patient Total time spent providing and/or coordinating discharge services: - Constitutional Vitals: Temp Pulse Resp BP Pulse Ox 98.1 F 76 16 144/65 95 09/15/16 10:58 09/15/16 10:58 09/15/16 10:58 09/15/16 10:58 09/15/16 10:58 General appearance: Present: A&O X 3, answers questions appropriately Exam: - General physical appearance well developed, well nourished, no distress - Neck no masses, no bruits, trachea midline, no lymphadectomy, no venous distension - Respiratory normal expansion, normal respiratory effort, clear to percussion, clear to auscultation - Cardiovascular Cardiovascular exam: Present: RRR, no murmurs/rubs/gallops - Abdomen Abdomen general surgery: Present: bowel sounds present, soft, non tender Hernia: Present: none - Neurologic Present: CN 2-12 grossly intact, normal coordination, normal sensation - Psychiatric Psychiatric general surgery: Present: appropriate, oriented to person, oriented to place, oriented to time, speech is normal, memory intact
== END 2016-09-15 13:35 | disposition home or self-care (01) | DRG 390 ==
LOC: 3BNU 17:12 → EMEROO 17:12 → 3ANU 23:22
PROVIDERS: ADMIT Internal Medicine; ATTEND Internal Medicine Endocrinology, Diabetes & Metabolism

== ENCOUNTER 2018-03-14 16:21 | Inpatient (IN) ==
[2018-03-14] MEDS ORDERED: Isovue-370 500 ML INFUS..BTL IV ONE (16:53)
[2018-03-14] MEDS ORDERED: 0.9 % Sodium Chloride 1,000 ML IVC ONE (16:54)
--- NOTE | 2018-03-14 16:55 | Emergency Department Note ---
Disposition Clinical Impression: Small bowel obstruction Disposition: Admitted As Inpatient Condition: Fair Time of Disposition: 20:41 Abdominal Pain HPI - General Stated Complaint: bowel obstrucation Time Seen by Provider: 03/14/18 16:40 Nursing Notes Reviewed: Yes Vital Signs Reviewed: Yes - History of Present Illness HPI Narrative: 72-year-old male presents from the OR to this facility for continued evaluation of lower abdominal pain. Patient has a six-day history of lower abdominal intense sharp cramping present with any by mouth intake. When he has no by mouth intake, his pain subsides substantially. His stools have become loose, nonbloody, no melena. Decrease in frequency of passing flatness. He does have nausea with vomiting. His symptoms were identical in character and not as severe in intensity as previous small bowel obstruction. Patient has a history of remote cholecystectomy otherwise no abdominal surgical history. Acute abdominal x-ray series from the OR interpreted by OR radiology as small bowel obstruction. He was transferred to this facility for surgical consultation. PMH: Hypertension, hyperlipidemia, diabetes mellitus on both oral and insulin. GERD. Antiplatelet: Aspirin 81 mg daily Anticoagulant: None ROS: Positive: As above Negative: Fever, chills, chest pains, palpitations, back pain, dysuria, hematemesis, hematochezia, melena - Related Data Home Medications Medication Instructions Recorded Confirmed 0.9 % Sodium Chloride [place] Bg 500 ml IV DAILY 09/11/16 09/11/16 Amlodipine Besylate 10 mg PO DAILY 09/11/16 09/11/16 Aspirin Enteric Coated [Aspirin EC] 81 mg PO DAILY 09/11/16 09/11/16 Atorvastatin Calcium [Lipitor] 80 mg PO HS 09/11/16 09/11/16 Insulin ASPART [NovoLOG] 10 unit SQ 1200 09/11/16 09/11/16 Insulin ASPART [NovoLOG] 14 unit SQ QPM 09/11/16 09/11/16 Insulin Glargine [Lantus] 44 unit SQ HS 09/11/16 09/11/16 Metformin HCl [Glucophage] 1,000 mg PO BID 09/11/16 09/11/16 Naproxen [Naprosyn] 500 mg PO BID 09/11/16 09/11/16 Pantoprazole Sodium [Protonix] 40 mg PO DAILY 09/11/16 09/11/16 Tramadol HCl [Ultram] 100 mg PO TID PRN 09/11/16 09/11/16 Vit C/E/Zn/Coppr/Lutein/Zeaxan 1 cap PO BID 09/11/16 09/11/16 [Preservision Areds 2 Softgel] cloNIDine HCl [Clonidine HCl] 0.2 mg PO BID 09/11/16 09/11/16 hydroCHLOROthiazide 25 mg PO DAILY 09/11/16 09/11/16 [Hydrochlorothiazide] metFORMIN [Glucophage] 500 mg PO 1200 09/11/16 09/11/16 Previous Rx's Medication Instructions Recorded Calcium Carbonate [Calcium] 500 mg PO TID 7 Days tablet 09/15/16 Ciprofloxacin [Cipro] 500 mg PO BID 5 Days tablet 09/15/16 Potassium Chloride Elixir 40 meq PO DAILY 2 Days udc 09/15/16 [Potassium Chloride] metroNIDAZOLE [Flagyl] 500 mg PO TIDWM 5 Days tablet 09/15/16 Allergies Allergy/AdvReac Type Severity Reaction Status Date / Time No Known Allergies Allergy Verified 09/11/16 17:13 All systems ED: reviewed and negative except as stated. Review of Systems: As Per HPI Abdominal Pain PMH - Past Medical History Medical history: Reports: diabetes, hyperlipidemia, hypertension Male Surgical History: Reports: cholecystectomy, Tonsillectomy Psychiatric history: Reports: no psych history - Social History Smoking status: Current every day smoker Alcohol use: Reports: rarely Drug use: Reports: none Physical Exam Vital Signs Reviewed General: Patient is alert, oriented, and in no acute distress. Head: atraumatic, normocephalic Eye: normal appearance, PERRL, EOMI, no scleral icterus, no conjunctival injection ENT: mucous membranes moist, normal external ear exam Neck: normal inspection, trachea midline, full ROM Chest: normal inspection, symmetric chest rise Respiratory: Good respiratory effort. Bilateral breath sounds are clear without wheezing, crackles, or rhonchi. Cardiovascular: Regular rate and rhythm. No clicks, rubs, gallops, or murmors. Normal heart sounds. Abdomen: Bowel sounds present normoactive x-4 quadrants. Abdomen is soft, nondistended. Mild epigastric tenderness. No guarding or rebound. No organomegaly noted. Musculoskeletal: Spontaneously moving all extremities. Skin: warm, dry, intact. Neuro: GCS 15. Alert and oriented x4. Psych: Patient's affect is appropriate for situation. Course Course Narrative: Given patient's history of previous small bowel obstruction as well as his symptoms being identical in character but not as severe in intensity as his prior small bowel obstruction, current clinical concern is for small bowel obstruction. Patient is agreeable to CT abdomen pelvis with IV and oral contrast. His exam is surprisingly minimally tender in the hypogastrium. In reviewing records from his previous admission for small bowel obstruction, his abdomen was not markedly tender at that time either. CT abdomen pelvis with IV and oral contrast demonstrates small bowel obstruction . Patient exam continues to be unimpressive. He has not vomited while in the emergency department. We will hold on NG tube at this time. I discussed the patient with on-call general surgery, Dr. Marie. We discussed the patient's history, physical exam, workup findings, currently nonsurgical abd omen. She is agreeable to the plan of care at this time and will see the patient is consultation tomorrow. I discussed the above with the admitting hospitalist, Dr. Domingo, who agrees to accept the patient for small bowel stricture with general surgery on consult. Abdomen/Pelvis CT 03/14/18 19:00 IMPRESSION: Moderate distal small bowel obstruction without evident point of transition. Terminal ileum normal in size. Normal appendix. 2 large chronic nonobstructing calculi inferiorly in the left kidney. Additional nonobstructing calculi. Moderate to severe diverticulosis of the left colon. Marked enlargement of the prostate. Heavy atherosclerotic calcifications.. D/ / James Perdomo MD / James Perdomo MD Interpreting Provider: James Perdomo MD Vital Signs Temperature 97.7 F 03/14/18 17:08 Pulse Rate 108 03/14/18 17:08 Respiratory Rate 15 03/14/18 17:08 Blood Pressure 185/71 03/14/18 17:08 O2 Sat by Pulse Oximetry 98 03/14/18 17:08 Temperature 97.7 F 03/14/18 17:08 Pulse Rate 88 03/14/18 20:18 Respiratory Rate 18 03/14/18 20:18 Blood Pressure 160/66 03/14/18 20:18 O2 Sat by Pulse Oximetry 95 03/14/18 20:18 Oxygen Delivery Oxygen Delivery Room Air Abdominal Pain - Lab Data Result diagrams: 03/14/18 17:00 03/14/18 17:00 Lab Results 03/14/18 03/14/18 Range/Units 17:00 17:00 WBC 7.5 (4.3-11.1) K/mcL RBC 4.57 (4.19-5.50) M/mcL Hgb 13.6 (12.9-16.9) g/dL Hct 39.9 (37.5-50.1) % MCV 87.3 (83.0-100.0) fL MCH 29.8 (28.0-33.3) pg MCHC 34.1 (31.6-35.5) g/dL RDW 12.6 (11.5-14.5) % Plt Count 217 (140-400) K/mcL MPV 12.1 (9.4-12.4) fL Immature Gran % 0.3 (0-4) % Seg Neutrophils % 56.6 % Lymphocytes % 24.2 % Monocytes % 15.4 % Eosinophils % 2.7 % Basophils % 0.8 % Neutrophils # 4.2 (1.6-8.9) K/mcL Lymphocytes # 1.8 (0.6-4.6) K/mcL Monocytes # 1.2 (0.0-1.3) K/mcL Eosinophils # 0.2 (0.0-0.6) K/mcL Basophils # 0.1 (0.0-0.2) K/mcL Sodium 135 L (136-145) mEq/L Potassium 3.5 (3.5-5.1) mEq/L Chloride 104 (98-107) mEq/L Carbon Dioxide 22 L (23-29) mEq/L BUN 43 H (8-23) mg/dL Creatinine 1.22 (0.70-1.30) mg/dL Est GFR ( Amer) > 60 (> 60) Est GFR (Non-Af Amer) 58 L (> 60) BUN/Creatinine Ratio 35 H (6-26) Glucose 276 H (70-105) mg/dL Calculated Osmolality 301 H (280-300) Calcium 8.7 (8.6-10.3) mg/dL
[2018-03-14 17:19] LABS: Hematocrit 39.9 % (37.5-50.1); Hemoglobin 13.6 g/dL (12.9-16.9); Immature Granulocytes % 0.3 % (0-4); Lymphocytes % 24.2 %; Mean Corpuscular HGB Conc 34.1 g/dL (31.6-35.5); Mean Corpuscular Hemoglobin 29.8 pg (28.0-33.3); Mean Corpuscular Volume 87.3 fL (83.0-100.0); Mean Platelet Volume 12.1 fL (9.4-12.4); Platelet Count 217 K/mcL (140-400); Red Blood Count 4.57 M/mcL (4.19-5.50); Red Cell Distribution Width 12.6 % (11.5-14.5); Segmented Neutrophils % 56.6 %
[2018-03-14 17:20] LABS: Basophils # 0.1 K/mcL (0.0-0.2); Basophils % 0.8 %; Eosinophils # 0.2 K/mcL (0.0-0.6); Eosinophils % 2.7 %; Lymphocytes # 1.8 K/mcL (0.6-4.6); Monocytes # 1.2 K/mcL (0.0-1.3); Monocytes % 15.4 %; Neutrophils # 4.2 K/mcL (1.6-8.9)
--- NOTE | 2018-03-14 17:27 | Emergency Department Note ---
Disposition Clinical Impression: Small bowel obstruction Disposition: Admitted As Inpatient [facility] Provider[facility] - General Adult HPI - General Chief complaint: ED Abdominal Pain Stated complaint: bowel obstrucation Time Seen by Provider: 03/14/18 16:40 Source: patient Limitations: no limitations - History of Present Illness Pain Scale: 5 - Related Data Home Medications Medication Instructions Recorded Confirmed 0.9 % Sodium Chloride [place] Bg 500 ml IV DAILY 09/11/16 09/11/16 Amlodipine Besylate 10 mg PO DAILY 09/11/16 09/11/16 Aspirin Enteric Coated [Aspirin EC] 81 mg PO DAILY 09/11/16 09/11/16 Atorvastatin Calcium [Lipitor] 80 mg PO HS 09/11/16 09/11/16 Insulin ASPART [NovoLOG] 10 unit SQ 1200 09/11/16 09/11/16 Insulin ASPART [NovoLOG] 14 unit SQ QPM 09/11/16 09/11/16 Insulin Glargine [Lantus] 44 unit SQ HS 09/11/16 09/11/16 Metformin HCl [Glucophage] 1,000 mg PO BID 09/11/16 09/11/16 Naproxen [Naprosyn] 500 mg PO BID 09/11/16 09/11/16 Pantoprazole Sodium [Protonix] 40 mg PO DAILY 09/11/16 09/11/16 Tramadol HCl [Ultram] 100 mg PO TID PRN 09/11/16 09/11/16 Vit C/E/Zn/Coppr/Lutein/Zeaxan 1 cap PO BID 09/11/16 09/11/16 [Preservision Areds 2 Softgel] cloNIDine HCl [Clonidine HCl] 0.2 mg PO BID 09/11/16 09/11/16 hydroCHLOROthiazide 25 mg PO DAILY 09/11/16 09/11/16 [Hydrochlorothiazide] metFORMIN [Glucophage] 500 mg PO 1200 09/11/16 09/11/16 Previous Rx's Medication Instructions Recorded Calcium Carbonate [Calcium] 500 mg PO TID 7 Days tablet 09/15/16 Ciprofloxacin [Cipro] 500 mg PO BID 5 Days tablet 09/15/16 Potassium Chloride Elixir 40 meq PO DAILY 2 Days udc 09/15/16 [Potassium Chloride] metroNIDAZOLE [Flagyl] 500 mg PO TIDWM 5 Days tablet 06/06/17 Allergies Allergy/AdvReac Type Severity Reaction Status Date / Time No Known Allergies Allergy Verified 09/11/16 17:13 Past Medical History - Past Medical History Medical history: Reports: diabetes, hyperlipidemia, hypertension Surgical history: Reports: cholecystectomy Psychiatric history: Reports: no psych history - Social History Smoking Status: Current every day smoker Smokeless Tobacco Status: No Alcohol use: Reports: rarely Drug use: Reports: none Physical Exam - General Limitations: no limitations General appearance: alert, in no apparent distress Course Vital Signs Temperature 97.7 F 03/14/18 17:08 Pulse Rate 108 03/14/18 17:08 Respiratory Rate 15 03/14/18 17:08 Blood Pressure 185/71 03/14/18 17:08 O2 Sat by Pulse Oximetry 98 03/14/18 17:08 Temperature 97.7 F 03/14/18 17:08 Pulse Rate 87 03/14/18 19:37 Respiratory Rate 18 03/14/18 19:37 Blood Pressure 152/69 03/14/18 19:37 O2 Sat by Pulse Oximetry 96 03/14/18 19:37 Oxygen Delivery Oxygen Delivery Room Air Medical Decision Making - MDM Narrative Medical decision making narrative: CT abdomen and pelvis shows evidence of a distal small bowel obstruction. No active vomiting at this time. Admit the patient. Keep nothing by mouth. IV fluids. - Medical Records Medical records reviewed: Yes I reviewed the patient's medical records. - Lab Data Lab results reviewed: Yes I reviewed the patient's lab results. Result diagrams: 03/14/18 17:00 03/14/18 17:00 Lab Results 03/14/18 03/14/18 Range/Units 17:00 17:00 WBC 7.5 (4.3-11.1) K/mcL RBC 4.57 (4.19-5.50) M/mcL Hgb 13.6 (12.9-16.9) g/dL Hct 39.9 (37.5-50.1) % MCV 87.3 (83.0-100.0) fL MCH 29.8 (28.0-33.3) pg MCHC 34.1 (31.6-35.5) g/dL RDW 12.6 (11.5-14.5) % Plt Count 217 (140-400) K/mcL MPV 12.1 (9.4-12.4) fL Immature Gran % 0.3 (0-4) % Seg Neutrophils % 56.6 % Lymphocytes % 24.2 % Monocytes % 15.4 % Eosinophils % 2.7 % Basophils % 0.8 % Neutrophils # 4.2 (1.6-8.9) K/mcL Lymphocytes # 1.8 (0.6-4.6) K/mcL Monocytes # 1.2 (0.0-1.3) K/mcL Eosinophils # 0.2 (0.0-0.6) K/mcL Basophils # 0.1 (0.0-0.2) K/mcL Sodium 135 L (136-145) mEq/L Potassium 3.5 (3.5-5.1) mEq/L Chloride 104 (98-107) mEq/L Carbon Dioxide 22 L (23-29) mEq/L BUN 43 H (8-23) mg/dL Creatinine 1.22 (0.70-1.30) mg/dL Est GFR ( Amer) > 60 (> 60) Est GFR (Non-Af Amer) 58 L (> 60) BUN/Creatinine Ratio 35 H (6-26) Glucose 276 H (70-105) mg/dL Calculated Osmolality 301 H (280-300) Calcium 8.7 (8.6-10.3) mg/dL - Radiology Data Radiology results reviewed: Yes I reviewed the patient's radiology results. Attestation Statement - Attestation Attestation: I examined this patient and my medical decision-making was reviewed with the Resident Physician. I agree with the documented findings, disposition and treatment plan as described except to the extent set forth below. 72-year-old male sent to the ER from the [facility] for possible small bowel obstruction. Patient had abdominal series done as an outpatient over at the [place] [facility] and they noticed him to have evidence of a small bowel obstruction on the plain films. He states is been having problems for 6 days. He has been having intermittent loose stools. He has not passed any gas for a small amount one t sridhar today. He reports no vomiting. No significant abdominal pain. States he has not had a formed bowel movement in over 6 days. He said some increasing nausea for 6 days as well. No documented fevers. He does have a history of a small bowel obstruction in the past that required admission to the hospital. They did not have to operate on this to her.. We will do a CT abdomen and pelvis with contrast here to get a better look at the bowel pattern.
[2018-03-14 17:33] LABS: BUN/Creatinine Ratio 35 (6-26); Blood Urea Nitrogen 43 mg/dL (8-23); Calcium 8.7 mg/dL (8.6-10.3); Carbon Dioxide 22 mEq/L (23-29); Chloride 104 mEq/L (98-107); Glucose 276 mg/dL (70-105); Osmolality,Calculated 301 (280-300); Potassium 3.5 mEq/L (3.5-5.1); Sodium 135 mEq/L (136-145); eGFR For Non-African Americans 58 (> 60)
[2018-03-14] MEDS ORDERED: 0.9 % Sodium Chloride 1,000 ML IVC SCH (20:00)
[2018-03-14] MEDS ORDERED: D5% in Water 1,000 ML IVC PRN (20:21)
[2018-03-14] MEDS ORDERED: Naloxone 0.4 MG/ML INJ IVP PRN (20:21)
[2018-03-14] MEDS ORDERED: *HR* Dextrose 50 % in Water (Syg) 50 ML SYRINGE IVP PRN (20:21)
[2018-03-14] MEDS ORDERED: Dextrose Gel 15 GM/37.5 ML TUBE PO PRN ×2 (20:21)
[2018-03-14] MEDS ORDERED: Ipratropium/Albuterol Neb 3 ML IH PRN (20:24)
[2018-03-14] MEDS ORDERED: *HR* FentaNYL (PF) 100 MCG/2 ML VIAL IVP PRN (20:24)
[2018-03-14] MEDS ORDERED: Ondansetron 4 MG/2 ML VIAL IVP PRN (20:24)
--- NOTE | 2018-03-14 20:41 | Internal Med History&Physical ---
Date of Encounter: 03/14/18 Time of Encounter: 20:00 Internal Medicine - H&P: HPI Chief complaint: nausea/vomiting/abdominal pain Admitted From: Emergency Dept Plans for Post Hospital Care: Home History of present illness: Mr. Castañeda is a 72 year old male who presents to the ER this evening in transfer from the [place] urgent care. Patient presented to the [place] urgent care earlier today with a 7 day history of protracted nausea, vomiting, early episodes of diarrhea in the week, and now with minimal to no flatus and no bowel movements. He also developed some abdominal pain. Because of persistence and worsening of symptom s, he went to urgent care. He was sent directly to the ER here at [place] from the [place]. Workup in ER revealed CT scan of the abdomen suggesting small bowel obstruction. He was subsequently admitted to hospitalist service with a consult to surgery. Upon my assessment of the patient, he and his confirmed above history. He has no abdominal pain presently. He denies any fevers, chills, or night sweats. He denies any raw or undercooked meats, exotic food ingestion, or any other ill contacts at home. He has had one prior episode of small bowel obstruction several years ago. He has no prior abdominal surgery other than cholecystectomy. Presently, he does not have an NG tube and feels clinically improved compared to the earlier today. Per my discussions with the ER staff, they did not recommend NG tube placement and confirmed this with surgery. I discussed this with patient and his at length. If he has worsening symptoms tonight, I recommend NG tube placement for decompression, and he is in agreement. Past Med Surg Social Fam HX - Past Medical History Attestation: Yes The following information was validated with the patient. Source: patient, obtained from family Medical history: diabetes, hyperlipidemia, hypertension Additional medical history: barretts esophagus, chronic back pain Psychiatric history: no psych history - Past Surgical History Surgical History: cholecystectomy - Social History Smoking Status: Current every day smoker Smokeless Tobacco Status: No Alcohol use: rarely Drug use: none Current living situation: Home, With Family Activity Level: Independent ambulation Recent Out of Country Travel Within the Last 8 Weeks: No - Family History Mother Living Status: Hx Family Cardiac Disorders: Yes Internal Medicine - H&P: Meds 0.9 % Sodium Chloride [place] Bg 500 ml IV DAILY 09/11/16 [History] Amlodipine Besylate 10 mg PO DAILY 09/11/16 [History] Aspirin Enteric Coated [Aspirin EC] 81 mg PO DAILY 09/11/16 [History] Atorvastatin Calcium [Lipitor] 80 mg PO HS 09/11/16 [History] Insulin ASPART [NovoLOG] 10 unit SQ 1200 09/11/16 [History] Insulin ASPART [NovoLOG] 14 unit SQ QPM 09/11/16 [History] Insulin Glargine [Lantus] 44 unit SQ HS 09/11/16 [History] Metformin HCl [Glucophage] 1,000 mg PO BID 09/11/16 [History] Naproxen [Naprosyn] 500 mg PO BID 09/11/16 [History] Pantoprazole Sodium [Protonix] 40 mg PO DAILY 09/11/16 [History] Tramadol HCl [Ultram] 100 mg PO TID PRN 09/11/16 [History] Vit C/E/Zn/Coppr/Lutein/Zeaxan [Preservision Areds 2 Softgel] 1 cap PO BID 09/11/16 [History] cloNIDine HCl [Clonidine HCl] 0.2 mg PO BID 09/11/16 [History] hydroCHLOROthiazide [Hydrochlorothiazide] 25 mg PO DAILY 09/11/16 [History] metFORMIN [Glucophage] 500 mg PO 1200 09/11/16 [History] Calcium Carbonate [Calcium] 500 mg PO TID 7 Days tablet 09/15/16 [Rx] Ciprofloxacin [Cipro] 500 mg PO BID 5 Days tablet 09/15/16 [Rx] Potassium Chloride Elixir [Potassium Chloride] 40 meq PO DAILY 2 Days udc 09/15/16 [Rx] metroNIDAZOLE [Flagyl] 500 mg PO TIDWM 5 Days tablet 09/15/16 [Rx] Allergy/AdvReac Type Severity Reaction Status Date / Time No Known Allergies Allergy Verified 09/11/16 17:13 - Constitutional Constitutional: no chills, no fever(s), no night sweats - EENT Eyes: no blurry vision, no change in vision Ears: no ear pain, no tinnitus Nose, mouth and throat: no sore throat - Cardiovascular Cardiovascular ROS IM: no chest pain, no dyspnea - Respiratory Respiratory: no cough, no hemoptysis - Gastrointestinal Gastrointestinal: abdominal pain, heartburn, nausea, vomiting, no hematemesis, no hematochezia, no melena - Genitourinary Genitourinary ROS male: no dysuria, no flank pain, no hematuria - Musculoskeletal Musculoskeletal ROS IM: no arthralgias, no back pain - Integumentary Integumentary IM: no rash, no jaundice - Neurological Neurological ROS: no dizziness, no focal weakness, no frequent falls, no headache(s) - Psychiatric Psychiatric: no anxiety, no depression - Endocrine Endocrine IM: no polydipsia, no polyphagia, no polyuria - Allergic/Immunologic Allergic/Immunologic: no wheezing, no GI upset with certain foods - Constitutional Vitals: Temp Pulse Resp BP Pulse Ox 97.7 F 88 18 160/66 95 03/14/18 17:08 03/14/18 20:18 03/14/18 20:18 03/14/18 20:18 03/14/18 20:18 General appearance: Present: cooperative, A&O X 3, pleasant, no acute distress, answers questions appropriately Exam: looks dry, otherwise no acute distress - Head Head exam: Present: atraumatic, normal inspection - Eye Eye exam: Present: EOMI, PERRL. Absent: scleral icterus Pupils: Present: normal accommodation - ENT ENT exam: Present: mucous membranes dry, normal exam, normal oropharynx - Neck Neck exam general surgery: Present: full ROM, supple. Absent: tenderness, n uchal rigidity, thyromegaly - Respiratory Respiratory exam: Present: prolonged expiratory phase. Absent: accessory muscle use, chest wall tenderness, rales, respiratory distress, rhonchi, wheezes, tachypnea - Cardiovascular Cardiovascular exam: Present: distant heart sounds, RRR, +S1, +S2. Absent: diastolic murmur, systolic murmur - GI/Abdominal GI/Abdominal exam: Present: hypoactive bowel sounds, tenderness (mild, diffuse). Absent: guarding, hepatomegaly, mass, rebound, splenomegaly, no peritoneal signs - Extremities Exam Extremities exam: Present: full ROM, warm, radial pulses palpable and symmetrical. Absent: calf tenderness, joint swelling, pedal edema, tenderness - Back Exam Back exam: Present: normal inspection. Absent: CVA tenderness (L), CVA tenderness (R) - Neurological Exam Neurological exam: Present: alert, CN II-XII intact, oriented X3, no focal deficits - Psychiatric Psychiatric exam: Present: normal affect, normal mood - Skin Skin exam: Present: dry, intact, warm Internal Med - H&P Results - Labs CBC & Chem 7: 03/14/18 17:00 03/14/18 17:00 Labs: Short CBC 03/14/18 Range/Units 17:00 WBC 7.5 (4.3-11.1) K/mcL Hgb 13.6 (12.9-16.9) g/dL Hct 39.9 (37.5-50.1) % Plt Count 217 (140-400) K/mcL Neutrophils # 4.2 (1.6-8.9) K/mcL BMP 03/14/18 17:00 Sodium 135 L Potassium 3.5 Chloride 104 Carbon Dioxide 22 L BUN 43 H Creatinine 1.22 Glucose 276 H Calcium 8.7 - Impressions ITS Impressions Abdomen/Pelvis CT 03/14/18 19:00 IMPRESSION: Moderate distal small bowel obstruction without evident point of transition. Terminal ileum normal in size. Normal appendix. 2 large chronic nonobstructing calculi inferiorly in the left kidney. Additional nonobstructing calculi. Moderate to severe diverticulosis of the left colon. Marked enlargement of the prostate. Heavy atherosclerotic calcifications.. D/ / James Perdomo MD / James Perdomo MD Interpreting Provider: James Perdomo MD - Diagnostic Studies CT scan - abdomen Status: image reviewed by me (SBO noted; report reviewed as well) - Assessment and plan (1) Small bowel obstruction Current Visit: Yes Status: Acute Assessment and plan: 1. Will keep NPO. 2. IV nausea and pain medication as necessary. 3. If symptoms worsen tonight, will proceed with NG tube placement. 4. Surgery consult as per ER discussion. 5. IVF hydration. 6. Will order AAS to be done in the morning. (2) Diabetes Current Visit: Yes Status: Chronic Assessment and plan: 1. Will hold oral home meds. 2. Will place on SSI and monitor glucose closely. Qualifiers: Diabetes mellitus type: type 2 Diabetes mellitus fci insulin use: with fci use Diabetes mellitus complication status: without complication Qualified Code(s): E11.9 - Type 2 diabetes mellitus without complications; Z79.4 - long term care pharmacist (current) use of insulin (3) Hypertension Current Visit: Yes Status: Chronic Assessment and plan: 1. Will order PRN hydralazine and monitor BP closely. 2. Resume home BP meds once SBO resolves/improves and/or when patient can tolerate PO meds. Qualifiers: Hypertension type: essential hypertension Qualified Code(s): I10 - Essential (primary) hypertension (4) DVT prophylaxis Current Visit: Yes Status: Acute Assessment and plan: 1. Heparin SQ.
[2018-03-14] MEDS: 0.9 % Sodium Chloride w KCl 20 MEQ/1,000 ML MLS IVC SCH (21:33)
[2018-03-14] MEDS: *HR* Heparin 5,000 UNIT/ML VIAL SQ SCH (21:34)
[2018-03-15 04:07] LABS: Basophils # 0.1 K/mcL (0.0-0.2); Basophils % 0.6 %; Eosinophils # 0.4 K/mcL (0.0-0.6); Eosinophils % 4.7 %; Hematocrit 34.1 % (37.5-50.1); Immature Granulocytes % 0.3 % (0-4); Lymphocytes # 2.1 K/mcL (0.6-4.6); Lymphocytes % 26.4 %; Mean Corpuscular Hemoglobin 29.9 pg (28.0-33.3); Mean Corpuscular Volume 87.9 fL (83.0-100.0); Mean Platelet Volume 11.8 fL (9.4-12.4); Monocytes # 1.1 K/mcL (0.0-1.3); Monocytes % 13.9 %; Neutrophils # 4.3 K/mcL (1.6-8.9); Platelet Count 190 K/mcL (140-400); Red Blood Count 3.88 M/mcL (4.19-5.50); Red Cell Distribution Width 12.7 % (11.5-14.5); Segmented Neutrophils % 54.1 %
[2018-03-15 04:10] LABS: Hemoglobin 11.6 g/dL (12.9-16.9)
[2018-03-15 04:19] LABS: INR 1.1; Prothrombin Time 12.2 Seconds (9.4-12.1)
[2018-03-15 04:21] LABS: Activated Partial Thrombo Time 28.4 Seconds (26.0-36.0)
[2018-03-15 04:33] LABS: Alanine Aminotransferase 8 Units/L (7-52); Albumin/Globulin Ratio 0.9 (1.1-2.2); Alkaline Phosphatase 72 Units/L (34-104); Aspartate Amino Transferase 9 Units/L (13-39); BUN/Creatinine Ratio 28 (6-26); Bilirubin,Total 0.5 mg/dL (0.3-1.0); Blood Urea Nitrogen 27 mg/dL (8-23); Carbon Dioxide 20 mEq/L (23-29); Chloride 110 mEq/L (98-107); Globulin 3.4 g/dL (2.4-3.5); Glucose 169 mg/dL (70-105); Magnesium 1.4 mg/dL (1.6-2.6); Osmolality,Calculated 299 (280-300); Potassium 3.5 mEq/L (3.5-5.1); Sodium 140 mEq/L (136-145); Total Protein 6.4 g/dL (6.4-8.9); eGFR For Non-African Americans > 60 (> 60)
[2018-03-15] MEDS: *HR* Heparin 5,000 UNIT/ML VIAL SQ SCH (05:27)
[2018-03-15] MEDS: 0.9 % Sodium Chloride w KCl 20 MEQ/1,000 ML MLS IVC SCH (05:39)
[2018-03-15] MEDS: Insulin LISPRO 300 UNITS/3 ML VIAL SQ SCH ×3 (05:57→13:03)
[2018-03-15] MEDS ORDERED: Pantoprazole 40 MG VIAL IVP SCH (06:00)
--- NOTE | 2018-03-15 10:11 | Urology - Consult Note ---
Addendum entered and electronically signed by МАРИЯ Wright 03/15/18 11:14: Discussed case with Dr. Cardoso. Plan to await PSA results and proceed with Cystoscopy. Patient offered to complete cystoscopy while admitted or to follow up as outpatient. Patient wishes to proceed during admission. Original Note: <Nicolle Abarca - Last Filed: 03/15/18 10:11> Date of Encounter: 03/15/18 Time of Encounter: 10:03 - Assessment and Plan (1) Nephrolithiasis Current Visit: Yes Status: Acute Assessment and plan: Patient is a 72-year-old male who presents with a history of nephrolithiasis. Reviewed CT findings with patient and discussed non obstructing renal stones. There is no apparent hydronephrosis, and renal function is well maintained. There are no urine studies available for review. Discussed future implications of existing renal stones such as infection or renal impairment. Patient is not experiencing any adverse symptoms at this time. We will plan urologic follow-up appointment to discuss outpatient stone extraction risks and benefits. (2) Enlarged prostate without lower urinary tract symptoms (luts) Current Visit: Yes Status: Acute Assessment and plan: Patient is a 72-year-old male who presents with a history of an enlarged prostate. Patient is not currently experiencing any lower urinary tract symptoms. PSA is pending per Dr. Marie's order. We will do a bladder scan to evaluate PVR. Discussed prostate follow-up at patient's age and explained observation and more in depth work up are both reasonable and patient dependant. Will continue to follow. Urology CN:HPI Consult date: 03/15/18 Reason for consult Urology: Other (enlarged prostate; nonobstructing left renal stone) History of present illness: Patient is a 72-year-old male who presents with an enlarged prostate and non- obstructing, large left renal stone and smaller stones confirmed by CT. Patient was transferred from the [place] urgent care to [facility] emergency department for nausea, vomiting, abdominal pain. Patient underwent a CT scan of the abdomen and pelvis suggesting a small bowel obstruction. Patient has prior history of SBO but no history of abdominal surgery. CT also revealed an enlarged prostate without bladder outlet obstruction. Patient currently denies any symptoms of voiding dysfunction such as frequency, urgency, hesitancy, post void dribbling, incontinence. Patient undergoes routine PSA testing with PCP at [facility], and he does not follow with a urologist. Patient reports prior PSA results have been normal. PSA test ordered by Dr. Marie is pending. Patient denies known family history of prostate cancer. Patient was also found to have a non-obstructing left renal stone, 9mm, and few smaller non- obstructing stones, which he was not previously aware of. Patient denies past history of renal stones and denies known family history of renal stones. Patient denies gross hematuria, flank pain, fever, chills. Past Med Surg Social Fam HX - Past Medical History Medical history: diabetes, hyperlipidemia, hypertension Additional medical history: barretts esophagus, chronic back pain Psychiatric history: no psych history - Past Surgical History Surgical History: cholecystectomy - Social History Smoking Status: Current every day smoker Smokeless Tobacco Status: No Alcohol use: rarely Drug use: none - Family History Mother Living Status: Hx Family Cardiac Disorders: Yes Medications and Allergies Aspirin Enteric Coated [Aspirin EC] 81 mg PO DAILY 09/11/16 [History] Atorvastatin Calcium [Lipitor] 80 mg PO HS 09/11/16 [History] Insulin ASPART [NovoLOG] 10 unit SQ 1200 09/11/16 [History] Insulin ASPART [NovoLOG] 14 unit SQ QPM 09/11/16 [History] Insulin Glargine [Lantus] 44 unit SQ HS 09/11/16 [History] Metformin HCl [Glucophage] 1,000 mg PO BID 09/11/16 [History] Naproxen [Naprosyn] 500 mg PO BID 09/11/16 [History] Pantoprazole Sodium [Protonix] 40 mg PO DAILY 09/11/16 [History] Tramadol HCl [Ultram] 100 mg PO TID PRN 09/11/16 [History] Vit C/E/Zn/Coppr/Lutein/Zeaxan [Preservision Areds 2 Softgel] 1 cap PO BID 09/11 [History] cloNIDine HCl [Clonidine HCl] 0.2 mg PO BID 09/11/16 [History] metFORMIN [Glucophage] 500 mg PO 1200 09/11/16 [History] Amlodipine Besylate 10 mg PO DAILY 03/14/18 [History] Lisinopril-HCTZ 20-12.5 [Prinzide 20-12.5] 2 tab PO DAILY 03/14/18 [History] Allergy/AdvReac Type Severity Reaction Status Date / Time No Known Allergies Allergy Verified 09/11/16 17:13 Review of Systems - Constitutional no chills, no fatigue, no fever(s) - EENT Nose, mouth and throat: no dizziness, no headache(s) - Cardiovascular no chest pain, no diaphoresis, no dyspnea - Respiratory no cough, no dyspnea - Gastrointestinal abdominal pain, change in bowel habits, nausea, vomiting, other (constipation ) - Genitourinary no change in urinary stream, no difficulty urinating, no dysuria, no flank pain, no hematuria, no post void dribbling, no urinary frequency, no urinary h esitancy, no urinary incontinence, no urinary urgency - Musculoskeletal no back pain, no muscle weakness - Integumentary no erythema, no rash, no swelling - Neurological no confusion, no syncope - Psychiatric no anxiety, no depression Exam Initial Vital Signs Temp Pulse Resp BP Pulse Ox 97.7 F 108 15 185/71 98 03/14/18 17:08 03/14/18 17:08 03/14/18 17:08 03/14/18 17:08 03/14/18 17:08 - General physical appearance Present: well developed, no distress, no pain - Eyes Present: PERRL, normal ocular movement - ENT Present: normal nares, no hearing loss, no congestion - Neck Present: no masses, trachea midline - Respiratory Present: normal respiratory effort - Cardiovascular Cardiovascular exam IM: RRR - Abdomen Abdomen: Present: distended - Integumentary Present: no rash, no abnormal pigmentation - Neurologic Present: normal coordination Urology Results - Labs 03/15/18 03:24 03/15/18 03:24 Abnormal lab results RBC 3.88 M/mcL (4.19-5.50) L 03/15/18 03:24 Hgb 11.6 g/dL (12.9-16.9) L D 03/15/18 03:24 Hct 34.1 % (37.5-50.1) L 03/15/18 03:24 PT 12.2 Seconds (9.4-12.1) H 03/15/18 03:24 Chloride 110 mEq/L (98-107) H 03/15/18 03:24 Carbon Dioxide 20 mEq/L (23-29) L 03/15/18 03:24 BUN 27 mg/dL (8-23) H 03/15/18 03:24 BUN/Creatinine Ratio 28 (6-26) H 03/15/18 03:24 Glucose 169 mg/dL (70-105) H 03/15/18 03:24 Calcium 8.0 mg/dL (8.6-10.3) L 03/15/18 03:24 Magnesium 1.4 mg/dL (1.6-2.6) L 03/15/18 03:24 AST 9 Units/L (13-39) L 03/15/18 03:24 Albumin 3.0 g/dL (3.5-5.7) L 03/15/18 03:24 Albumin/Globulin Ratio 0.9 (1.1-2.2) L 03/15/18 03:24 Diabetes panel 03/14/18 03/15/18 Range/Units 17:00 03:24 Sodium 135 L 140 (136-145) mEq/L Potassium 3.5 3.5 (3.5-5.1) mEq/L Chloride 104 110 H (98-107) mEq/L Carbon Dioxide 22 L 20 L (23-29) mEq/L BUN 43 H 27 H (8-23) mg/dL Creatinine 1.22 0.96 (0.70-1.30) mg/dL Glucose 276 H 169 H (70-105) mg/dL Calcium 8.7 8.0 L (8.6-10.3) mg/dL AST 9 L (13-39) Units/L ALT 8 (7-52) Units/L Alkaline Phosphatase 72 (34-104) Units/L Albumin 3.0 L (3.5-5.7) g/dL Calcium panel 03/14/18 03/15/18 Range/Units 17:00 03:24 Calcium 8.7 8.0 L (8.6-10.3) mg/dL Albumin 3.0 L (3.5-5.7) g/dL Pituitary panel 03/14/18 03/15/18 Range/Units 17:00 03:24 Sodium 135 L 140 (136-145) mEq/L Potassium 3.5 3.5 (3.5-5.1) mEq/L Chloride 104 110 H (98-107) mEq/L Carbon Dioxide 22 L 20 L (23-29) mEq/L BUN 43 H 27 H (8-23) mg/dL Creatinine 1.22 0.96 (0.70-1.30) mg/dL Glucose 276 H 169 H (70-105) mg/dL Calcium 8.7 8.0 L (8.6-10.3) mg/dL Adrenal panel 03/14/18 03/15/18 Range/Units 17:00 03:24 Sodium 135 L 140 (136-145) mEq/L Potassium 3.5 3.5 (3.5-5.1) mEq/L Chloride 104 110 H (98-107) mEq/L Carbon Dioxide 22 L 20 L (23-29) mEq/L BUN 43 H 27 H (8-23) mg/dL Creatinine 1.22 0.96 (0.70-1.30) mg/dL Glucose 276 H 169 H (70-105) mg/dL Calcium 8.7 8.0 L (8.6-10.3) mg/dL Total Bilirubin 0.5 (0.3-1.0) mg/dL AST 9 L (13-39) Units/L ALT 8 (7-52) Units/L Alkaline Phosphatase 72 (34-104) Units/L Albumin 3.0 L (3.5-5.7) g/dL All other labs normal. - Imaging CT scan - abdomen: report reviewed, image reviewed CT scan - pelvis: report reviewed, image reviewed Consult Discharge Plan - Plan Referrals: [facility] [Outside] <Devin Cardoso - Last Filed: 03/15/18 15:05> Date of Encounter: 03/15/18 - Assessment and Plan (1) Abnormal abdominal CT scan Current Visit: Yes Status: Acute Assessment and plan: CT suggestive of prostate invasion in the bladder. Case discussed with general surgery attending Dr. Marie. Images reviewed and interpreted independently. Discussed findings and options for management with patient in detail. Patient seen and examined independently. History, review of systems and physical exam findings of PA verified. All pertinent imaging reviewed. I am in agreement with the assessment and plan as outlined by our Urologic Surgery Department Physician Corporate Director Of Pharmacy, Rima. Plan: PSA today. Add on for cystoscopy today. Exam Initial Vital Signs Temp Pulse Resp BP Pulse Ox 97.7 F 108 15 185/71 98 03/14/18 17:08 03/14/18 17:08 03/14/18 17:08 03/14/18 17:08 03/14/18 17:08 Urology Results - Labs 03/15/18 03:24 03/15/18 03:24 Abnormal lab results RBC 3.88 M/mcL (4.19-5.50) L 03/15/18 03:24 Hgb 11.6 g/dL (12.9-16.9) L D 03/15/18 03:24 Hct 34.1 % (37.5-50.1) L 03/15/18 03:24 PT 12.2 Seconds (9.4-12.1) H 03/15/18 03:24 Chloride 110 mEq/L (98-107) H 03/15/18 03:24 Carbon Dioxide 20 mEq/L (23-29) L 03/15/18 03:24 BUN 27 mg/dL (8-23) H 03/15/18 03:24 BUN/Creatinine Ratio 28 (6-26) H 03/15/18 03:24 Glucose 169 mg/dL (70-105) H 03/15/18 03:24 Calcium 8.0 mg/dL (8.6-10.3) L 03/15/18 03:24 Magnesium 1.4 mg/dL (1.6-2.6) L 03/15/18 03:24 AST 9 Units/L (13-39) L 03/15/18 03:24 Albumin 3.0 g/dL (3.5-5.7) L 03/15/18 03:24 Albumin/Globulin Ratio 0.9 (1.1-2.2) L 03/15/18 03:24 Diabetes panel 03/14/18 03/15/18 Range/Units 17:00 03:24 Sodium 135 L 140 (136-145) mEq/L Potassium 3.5 3.5 (3.5-5.1) mEq/L Chloride 104 110 H (98-107) mEq/L Carbon Dioxide 22 L 20 L (23-29) mEq/L BUN 43 H 27 H (8-23) mg/dL Creatinine 1.22 0.96 (0.70-1.30) mg/dL Glucose 276 H 169 H (70-105) mg/dL Calcium 8.7 8.0 L (8.6-10.3) mg/dL AST 9 L (13-39) Units/L ALT 8 (7-52) Units/L Alkaline Phosphatase 72 (34-104) Units/L Albumin 3.0 L (3.5-5.7) g/dL Calcium panel 03/14/18 03/15/18 Range/Units 17:00 03:24 Calcium 8.7 8.0 L (8.6-10.3) mg/dL Albumin 3.0 L (3.5-5.7) g/dL Pituitary panel 03/14/18 03/15/18 Range/Units 17:00 03:24 Sodium 135 L 140 (136-145) mEq/L Potassium 3.5 3.5 (3.5-5.1) mEq/L Chloride 104 110 H (98-107) mEq/L Carbon Dioxide 22 L 20 L (23-29) mEq/L BUN 43 H 27 H (8-23) mg/dL Creatinine 1.22 0.96 (0.70-1.30) mg/dL Glucose 276 H 169 H (70-105) mg/dL Calcium 8.7 8.0 L (8.6-10.3) mg/dL Adrenal panel 03/14/18 03/15/18 Range/Units 17:00 03:24 Sodium 135 L 140 (136-145) mEq/L Potassium 3.5 3.5 (3.5-5.1) mEq/L Chloride 104 110 H (98-107) mEq/L Carbon Dioxide 22 L 20 L (23-29) mEq/L BUN 43 H 27 H (8-23) mg/dL Creatinine 1.22 0.96 (0.70-1.30) mg/dL Glucose 276 H 169 H (70-105) mg/dL Calcium 8.7 8.0 L (8.6-10.3) mg/dL Total Bilirubin 0.5 (0.3-1.0) mg/dL AST 9 L (13-39) Units/L ALT 8 (7-52) Units/L Alkaline Phosphatase 72 (34-104) Units/L Albumin 3.0 L (3.5-5.7) g/dL All other labs normal. Procedures:Urology - Cystoscopy Time out performed: Yes Prophylactic Antibiotics Given: No Reason for Cystoscopy: Prostate lesion Preparation: Lidocaine Jelly Irrigation Fluid Used: Yes Cystoscopy Results and Findings: Enlarged prostate with intravesical adenoma and median lobe. Patient tolerated procedure: well, no complications Additional comments: More urethra and bladder mucosa. Moderately trabeculated bladder. Visually obstructing prostate. Intravesical adenoma with significant median lobe.
--- NOTE | 2018-03-15 10:16 | Internal Med Progress Note ---
Hospitalist Progress Note - Encounter Date of Encounter: 03/15/18 Time of Encounter: 07:45 - Subjective Interval History: This 72 years old gentleman came to [facility] emergency from [place] urgent care for nausea ,vomiting, not passing flatus and not having bowel movement. He has had such problem since last 1 week. He has had frequent loses stool 1 week a go. He had history of small bowel obstruction a few years back that was treated with conservative treatment( without surgery) .He has had cholecystectomy done before but he denied any bowel surgery in the past. His workup with CT abdomen and pelvis showed small bowel obstruction without a transition point and non- obstructing renal calculi in the left kidney, severe diverticulosis, prostatomegaly.He has been admitted here with IV hydration, nothing orally/ bowel rest. During my bedside visit this morning, the patient was comfortably lying on the bed, not in acute distress, well oriented to time place and person, communicating appropriately. He stated that he has had a bowel movement yest erday, he is passing gas/ flatus regularly. His pain abdomen, abdominal distension ,nausea vomiting has been significantly less than before. He is not on NG tube decompression, and he is agreed to put NG whenever symptoms are getting worse. His vitals are : Temperature 99.2, pulse 81, blood pressure 151/51, sat 93% His curent labs: WBC 7.9, hemoglobin 11.6, PT 12.2, INR 1.1, platelet 190, sodium 140, potassium 3.5, BUN 27, creatinine 0.96. - Exam Vitals: Temp Pulse Resp BP Pulse Ox 99.2 F 81 16 151/51 93 03/15/18 07:11 03/15/18 07:11 03/15/18 07:11 03/15/18 07:11 03/15/18 07:11 Exam: General: He is well oriented to time place and person, not in acute distress, answering questions appropriately, lying comfortably on the bed. HEENT: No thyromegaly, oral mucosa moist now Abdomen: Mildly distended abdomen, minimally tenderness all over the abdomen, no sign of peritoneal irritation: rigidity and guarding, bowel sound was present but diminished, no hepatosplenomegaly. Chest: Equal air entry both side, no wheezes/rhonchi and crepitation . CVS: Normal Rate and rhythm, S1-S2 normal, no murmur, no basal crackles. Extremities: No cyanosis , no edema, no calf tenderness - Assessment and Plan (1) Small bowel obstruction Current Visit: Yes Status: Acute Assessment and Plan: *The patient was admitted for nausea, vomiting, abdominal pain and distention. *CT abdomen and pelvis is suggestive of small bowel obstruction without a transition point. *Will keep NPO. *IV Zofran for nausea and pain medication as neded. *Surgery consult on board, we appreciate recommendation. *continue IVF hydration. *If symptoms worsen will proceed with NG tube placement. *Is per surgery recommendation, patient will start clear liquid diet then advanced to semi liquid as tolerated. *His recent lab: Sodium 140, potassium 3.5, WBC 7.9, creatinine 0.96, BUN 27, calcium 8.0 * We are monitoring closely for improvement of his symptoms and his tolerance to oral feeding. (2) Hypertension Current Visit: Yes Status: Chronic Assessment and Plan: * He is on PRN hydralazine and monitor BP closely. We will monitor rebound pattern of hypertension. *His latest blood pressure is 151/51, 173/75 *we can resume home BP meds once SBO resolves/improves and/or when patient can tolerate PO meds. (3) DVT prophylaxis Current Visit: Yes Status: Acute Assessment and Plan: He is on subcutaneous heparine as a DVT prophylaxis. (4) Diabetes Current Visit: Yes Status: Chronic Assessment and Plan: Will hold oral home meds. Will place on SSI and monitor glucose closely. (5) Prostate enlargement Current Visit: Yes Status: Acute Assessment and Plan: The patient has enlargement of prostate found on abdominal and pelvis CT scan. He is at the group of risk of prostatic enlargement and its screening. There are no nonobstructing renal calculi in left kidney urology consultation has already been done., We have consulted urologist. We will appreciate the recommendation, the patient is aware of enlargement of prostate , but denies any symptom of prostatitis and family history of prostate cancer. They will follow-up in outpatient. (6) Nephrolithiasis Current Visit: Yes Status: Acute Assessment and Plan: The patient has renal stone in left kidney. Urology consultation has been done. There is no sign of obstruction and hydronephrosis. Urology has planned to extract the stone after discussion in outpatient, as it is not emergency for now. - Time Spent with Patient Total time spent is greater than 50% in coordination of care (as documented) at patient's floor/unit and/or counseling patient: Internal Medicine: Result - Labs CBC & Chem 7: 03/15/18 03:24 03/15/18 03:24 Labs: Short CBC 03/14/18 03/15/18 Range/Units 17:00 03:24 WBC 7.5 7.9 (4.3-11.1) K/mcL Hgb 13.6 11.6 L D (12.9-16.9) g/dL Hct 39.9 34.1 L (37.5-50.1) % Plt Count 217 190 (140-400) K/mcL Neutrophils # 4.2 4.3 (1.6-8.9) K/mcL BMP 03/14/18 03/15/18 17:00 03:24 Sodium 135 L 140 Potassium 3.5 3.5 Chloride 104 110 H Carbon Dioxide 22 L 20 L BUN 43 H 27 H Creatinine 1.22 0.96 Glucose 276 H 169 H Calcium 8.7 8.0 L Liver Function 03/15/18 Range/Units 03:24 Total Bilirubin 0.5 (0.3-1.0) mg/dL AST 9 L (13-39) Units/L ALT 8 (7-52) Units/L Alkaline Phosphatase 72 (34-104) Units/L Albumin 3.0 L (3.5-5.7) g/dL - ABG Interpretation ABG results: PT/INR, D-dimer PT 12.2 Seconds (9.4-12.1) H 03/15/18 03:24 - Impressions Impressions Abdomen/Pelvis CT 03/14/18 19:00 IMPRESSION: Moderate distal small bowel obstruction without evident point of transition. Terminal ileum normal in size. Normal appendix. 2 large chronic nonobstructing calculi inferiorly in the left kidney. Additional nonobstructing calculi. Moderate to severe diverticulosis of the left colon. Marked enlargement of the prostate. Heavy atherosclerotic calcifications.. D/ / James Perdomo MD / James Perdomo MD Interpreting Provider: James Perdomo MD Consult Discharge Plan - Plan [facility]] (2) Hypertension Qualifiers: Hypertension type: essential hypertension Qualified Code(s): I10 - Essential (primary) hypertension (4) Diabetes Qualifiers: Diabetes mellitus type: type 2 Diabetes mellitus mcc insulin use: with mcc use Diabetes mellitus complication status: without complication Qualified Code(s): E11.9 - Type 2 diabetes mellitus without complications; Z79.4 - vegetable buncher (current) use of insulin
--- NOTE | 2018-03-15 12:17 | General Surgery Consult Note ---
<GuruMarbinWendy L - Last Filed: 03/15/18 12:31> Date of Encounter: 03/15/18 Time of Encounter: 12:16 Assessment and Plan (1) Abnormal abdominal CT scan Current Visit: Yes Status: Acute Surgery was consulted for concern for SBO per CT. Pt reports vomiting and abd for aprox 4 days prior to coming to the hospital (for which he tried to rest at home). Today he reports his abd pain, n/v have completely resolved. He is having BMs (x2) and passing flatus. It is not unreasonable to consider he had ielus vs partial SBO that has resolved. Given that he has no symptoms currently and is hungry, we would trial CLD. If he tolerates can advance as tolerated and d/c planning per primary team. If he has return of symptoms, place and NG and bowel rest. No acute surgical intervention. Reccs as above. We will follow from a distance to assess his tolerance of the diet. If he tolerates his diet he is okay for discharge from a surgical standpoint, pending completion of hospitalist and urology workup. History of Present Illness Consult date: 03/14/18 (Dr. Shu Marie) Reason for consult: other Requesting physician: Jeff Barclay History of present illness: Surgery has been consulted for recommendations regarding possible small bowel obstruction Patient's past medical, surgical, social, and family history's have been reviewed with the patient and updated in the electronic medical record where indicated. His colonoscopies are completed through the [facility]. He states his last colonoscopy was 3 years ago. It is positive for polyps and he has colonoscopies every 5 years. Mr. montalvo is a 72-year-old male who presented on 03/14/2018 following a transfer from the [facility] urgent care. Patient reports for the 4 to 5 days preceding he had abdominal pain, copious amounts of vomiting, and felt generally weak. Prior to the onset of the abdominal pain and vomiting, he did have diarrhea earlier in the week. He states his kept "nagging me to get something done about this." This is when he presented to the urgent care. The urgent care at the [facility] promptly sent him to the emergency department for work up. He had a CT of the abdomen and pelvis with IV and oral contrast which noted moderate distance dull small bowel obstruction with out a transition point identified, and normal appendix, too large chronic nonobstructing renal calculi in the left kidney, severe diverticulosis, and a markedly enlarged prostate. He was admitted for further workup. And NG tube was not placed. Presently, he denies fever, chills, headache, dizziness, lightheadedness, chest pain, shortness of breath, abdominal pain, nausea, vomiting. He reports he had a bowel movement twice today and is passing gas. He states his abdominal symptoms have completely resolved. Past Med Surg Social Fam HX - Past Medical History Medical history: diabetes, hyperlipidemia, hypertension Additional medical history: barretts esophagus, chronic back pain Psychiatric history: no psych history - Past Surgical History Surgical History: cholecystectomy - Social History Smoking Status: Current every day smoker Smokeless Tobacco Status: No Alcohol use: rarely Drug use: none - Family History Mother Living Status: Hx Family Cardiac Disorders: Yes Medications and Allergies RX: Aspirin Enteric Coated [Aspirin EC] 81 mg PO DAILY 09/11/16 [History] RX: Atorvastatin Calcium [Lipitor] 80 mg PO HS 09/11/16 [History] RX: Insulin ASPART [NovoLOG] 10 unit SQ 1200 09/11/16 [History] RX: Insulin ASPART [NovoLOG] 14 unit SQ QPM 09/11/16 [History] RX: Insulin Glargine [Lantus] 44 unit SQ HS 09/11/16 [History] RX: Metformin HCl [Glucophage] 1,000 mg PO BID 09/11/16 [History] RX: Naproxen [Naprosyn] 500 mg PO BID 09/11/16 [History] RX: Pantoprazole Sodium [Protonix] 40 mg PO DAILY 09/11/16 [History] RX: Tramadol HCl [Ultram] 100 mg PO TID PRN 09/11/16 [History] RX: Vit C/E/Zn/Coppr/Lutein/Zeaxan [Preservision Areds 2 Softgel] 1 cap PO BID 09/11/16 [History] RX: cloNIDine HCl [Clonidine HCl] 0.2 mg PO BID 09/11/16 [History] RX: metFORMIN [Glucophage] 500 mg PO 1200 09/11/16 [History] RX: Amlodipine Besylate 10 mg PO DAILY 03/14/18 [History] RX: Lisinopril-HCTZ 20-12.5 [Prinzide 20-12.5] 2 tab PO DAILY 03/14/18 [History] Allergy/AdvReac Type Severity Reaction Status Date / Time No Known Allergies Allergy Verified 09/11/16 17:13 Review of Systems All systems PM: reviewed and no additional remarkable complaints except as stated All systems PM: The remainder of the systems were reviewed and are negative General Surgery Exam Initial Vital Signs Temp Pulse Resp BP Pulse Ox 97.7 F 108 15 185/71 98 03/14/18 17:08 03/14/18 17:08 03/14/18 17:08 03/14/18 17:08 03/14/18 17:08 - General physical appearance well developed, well nourished, no distress, other (Sitting upright at edge of bed) - Neck trachea midline, no lymphadectomy - Respiratory normal expansion, normal respiratory effort, clear to auscultation - Cardiovascular Cardiovascular exam: Present: distant heart sounds - Abdomen Abdomen general surgery: Present: bowel sounds present, soft, non tender - Integumentary Integumentary general surgery: Present: warm and dry - Neurologic Present: normal coordination, normal sensation - Musculoskeletal Present: normal posture - Psychiatric Psychiatric general surgery: Present: A&Ox3, appropriate, oriented to person, oriented to place, oriented to time, speech is normal, memory intact Exam Initial Vital Signs Temp Pulse Resp BP Pulse Ox 97.7 F 108 15 185/71 98 03/14/18 17:08 03/14/18 17:08 03/14/18 17:08 03/14/18 17:08 03/14/18 17:08 Results - Labs 03/15/18 03:24 03/15/18 03:24 Abnormal lab results RBC 3.88 M/mcL (4.19-5.50) L 03/15/18 03:24 Hgb 11.6 g/dL (12.9-16.9) L D 03/15/18 03:24 Hct 34.1 % (37.5-50.1) L 03/15/18 03:24 PT 12.2 Seconds (9.4-12.1) H 03/15/18 03:24 Chloride 110 mEq/L (98-107) H 03/15/18 03:24 Carbon Dioxide 20 mEq/L (23-29) L 03/15/18 03:24 BUN 27 mg/dL (8-23) H 03/15/18 03:24 BUN/Creatinine Ratio 28 (6-26) H 03/15/18 03:24 Glucose 169 mg/dL (70-105) H 03/15/18 03:24 Calcium 8.0 mg/dL (8.6-10.3) L 03/15/18 03:24 Magnesium 1.4 mg/dL (1.6-2.6) L 03/15/18 03:24 AST 9 Units/L (13-39) L 03/15/18 03:24 Albumin 3.0 g/dL (3.5-5.7) L 03/15/18 03:24 Albumin/Globulin Ratio 0.9 (1.1-2.2) L 03/15/18 03:24 Diabetes panel 03/14/18 03/15/18 Range/Units 17:00 03:24 Sodium 135 L 140 (136-145) mEq/L Potassium 3.5 3.5 (3.5-5.1) mEq/L Chloride 104 110 H (98-107) mEq/L Carbon Dioxide 22 L 20 L (23-29) mEq/L BUN 43 H 27 H (8-23) mg/dL Creatinine 1.22 0.96 (0.70-1.30) mg/dL Glucose 276 H 169 H (70-105) mg/dL Calcium 8.7 8.0 L (8.6-10.3) mg/dL AST 9 L (13-39) Units/L ALT 8 (7-52) Units/L Alkaline Phosphatase 72 (34-104) Units/L Albumin 3.0 L (3.5-5.7) g/dL Calcium panel 03/14/18 03/15/18 Range/Units 17:00 03:24 Calcium 8.7 8.0 L (8.6-10.3) mg/dL Albumin 3.0 L (3.5-5.7) g/dL Pituitary panel 03/14/18 03/15/18 Range/Units 17:00 03:24 Sodium 135 L 140 (136-145) mEq/L Potassium 3.5 3.5 (3.5-5.1) mEq/L Chloride 104 110 H (98-107) mEq/L Carbon Dioxide 22 L 20 L (23-29) mEq/L BUN 43 H 27 H (8-23) mg/dL Creatinine 1.22 0.96 (0.70-1.30) mg/dL Glucose 276 H 169 H (70-105) mg/dL Calcium 8.7 8.0 L (8.6-10.3) mg/dL Adrenal panel 03/14/18 03/15/18 Range/Units 17:00 03:24 Sodium 135 L 140 (136-145) mEq/L Potassium 3.5 3.5 (3.5-5.1) mEq/L Chloride 104 110 H (98-107) mEq/L Carbon Dioxide 22 L 20 L (23-29) mEq/L BUN 43 H 27 H (8-23) mg/dL Creatinine 1.22 0.96 (0.70-1.30) mg/dL Glucose 276 H 169 H (70-105) mg/dL Calcium 8.7 8.0 L (8.6-10.3) mg/dL Total Bilirubin 0.5 (0.3-1.0) mg/dL AST 9 L (13-39) Units/L ALT 8 (7-52) Units/L Alkaline Phosphatase 72 (34-104) Units/L Albumin 3.0 L (3.5-5.7) g/dL All other labs normal. - Imaging Abdominal x-ray: report reviewed CT scan - abdomen: report reviewed CT scan - pelvis: report reviewed Consult Discharge Plan - Plan Referrals: [facility] [Outside] <Shu Marie - Last Filed: 03/15/18 15:40> Date of Encounter: 03/15/18 Assessment and Plan (1) Abnormal abdominal CT scan Current Visit: Yes Status: Acute agree with CLUB ATTENDANT assessment and plan patient has tolerated clears without pain, nausea or distention will advance diet ok to dc from surgical standpoint Review of Systems All systems PM: The remainder of the systems were reviewed and are negative General Surgery Exam Initial Vital Signs Temp Pulse Resp BP Pulse Ox 97.7 F 108 15 185/71 98 03/14/18 17:08 03/14/18 17:08 03/14/18 17:08 03/14/18 17:08 03/14/18 17:08 - General physical appearance well nourished, no distress - Eyes PERRL, normal ocular movement - ENT normal mucosa - Neck trachea midline - Respiratory normal expansion, normal respiratory effort - Cardiovascular Cardiovascular exam: Present: RRR - Abdomen Abdomen general surgery: Present: bowel sounds present, soft, non tender. Absent: distended, guarding, rebound - Integumentary Integumentary general surgery: Present: warm and dry - Neurologic Present: CN 2-12 grossly intact, normal sensation - Musculoskeletal Present: normal posture - Psychiatric Psychiatric general surgery: Present: A&Ox3, speech is normal Exam Initial Vital Signs Temp Pulse Resp BP Pulse Ox 97.7 F 108 15 185/71 98 03/14/18 17:08 03/14/18 17:08 03/14/18 17:08 03/14/18 17:08 03/14/18 17:08 Results - Labs 03/15/18 03:24 03/15/18 03:24 Abnormal lab results RBC 3.88 M/mcL (4.19-5.50) L 03/15/18 03:24 Hgb 11.6 g/dL (12.9-16.9) L D 03/15/18 03:24 Hct 34.1 % (37.5-50.1) L 03/15/18 03:24 PT 12.2 Seconds (9.4-12.1) H 03/15/18 03:24 Chloride 110 mEq/L (98-107) H 03/15/18 03:24 Carbon Dioxide 20 mEq/L (23-29) L 03/15/18 03:24 BUN 27 mg/dL (8-23) H 03/15/18 03:24 BUN/Creatinine Ratio 28 (6-26) H 03/15/18 03:24 Glucose 169 mg/dL (70-105) H 03/15/18 03:24 Calcium 8.0 mg/dL (8.6-10.3) L 03/15/18 03:24 Magnesium 1.4 mg/dL (1.6-2.6) L 03/15/18 03:24 AST 9 Units/L (13-39) L 03/15/18 03:24 Albumin 3.0 g/dL (3.5-5.7) L 03/15/18 03:24 Albumin/Globulin Ratio 0.9 (1.1-2.2) L 03/15/18 03:24 Diabetes panel 03/14/18 03/15/18 Range/Units 17:00 03:24 Sodium 135 L 140 (136-145) mEq/L Potassium 3.5 3.5 (3.5-5.1) mEq/L Chloride 104 110 H (98-107) mEq/L Carbon Dioxide 22 L 20 L (23-29) mEq/L BUN 43 H 27 H (8-23) mg/dL Creatinine 1.22 0.96 (0.70-1.30) mg/dL Glucose 276 H 169 H (70-105) mg/dL Calcium 8.7 8.0 L (8.6-10.3) mg/dL AST 9 L (13-39) Units/L ALT 8 (7-52) Units/L Alkaline Phosphatase 72 (34-104) Units/L Albumin 3.0 L (3.5-5.7) g/dL Calcium panel 03/14/18 03/15/18 Range/Units 17:00 03:24 Calcium 8.7 8.0 L (8.6-10.3) mg/dL Albumin 3.0 L (3.5-5.7) g/dL Pituitary panel 03/14/18 03/15/18 Range/Units 17:00 03:24 Sodium 135 L 140 (136-145) mEq/L Potassium 3.5 3.5 (3.5-5.1) mEq/L Chloride 104 110 H (98-107) mEq/L Carbon Dioxide 22 L 20 L (23-29) mEq/L BUN 43 H 27 H (8-23) mg/dL Creatinine 1.22 0.96 (0.70-1.30) mg/dL Glucose 276 H 169 H (70-105) mg/dL Calcium 8.7 8.0 L (8.6-10.3) mg/dL Adrenal panel 03/14/18 03/15/18 Range/Units 17:00 03:24 Sodium 135 L 140 (136-145) mEq/L Potassium 3.5 3.5 (3.5-5.1) mEq/L Chloride 104 110 H (98-107) mEq/L Carbon Dioxide 22 L 20 L (23-29) mEq/L BUN 43 H 27 H (8-23) mg/dL Creatinine 1.22 0.96 (0.70-1.30) mg/dL Glucose 276 H 169 H (70-105) mg/dL Calcium 8.7 8.0 L (8.6-10.3) mg/dL Total Bilirubin 0.5 (0.3-1.0) mg/dL AST 9 L (13-39) Units/L ALT 8 (7-52) Units/L Alkaline Phosphatase 72 (34-104) Units/L Albumin 3.0 L (3.5-5.7) g/dL All other labs normal. - Imaging CT scan - abdomen: report reviewed, image reviewed CT scan - pelvis: report reviewed, image reviewed - Attending Attestation I have personally performed a face to face evaluation on this patient. I have reviewed and agree with the care plan. History and Exam by me shows:
[2018-03-15] MEDS ORDERED: Lidocaine Jelly 11 ml Syringe TP ONE (13:39)
[2018-03-15] MEDS ORDERED: traMADol 50 MG TABLET PO PRN (13:54)
[2018-03-15 15:04] VITALS: BP 176/63
--- NOTE | 2018-03-15 16:37 | Discharge Summary ---
- NOTES TO OUTPATIENT PROVIDER Notes to Outpatient Provider: - Follow-up with Urology as planned in regards to prostate. Orders not resulted at time of discharge: Pending orders 03/15/18 16:11 BMP [Basic Metabolic Panel] Routine 03/16/18 04:00 Magnesium AM 0400 Date of Encounter: 03/15/18 Time of Encounter: 16:33 - Discharge Diagnosis (1) Small bowel obstruction Priority: Primary Status: Acute (2) Hypertension Priority: Secondary Status: Chronic Qualifiers: Hypertension type: essential hypertension Qualified Code(s): I10 - Essential (primary) hypertension (3) DVT prophylaxis Priority: Secondary Status: Acute (4) Diabetes Priority: Secondary Status: Chronic Qualifiers: Diabetes mellitus type: type 2 Diabetes mellitus ditcher operator insulin use: with ditcher operator use Diabetes mellitus complication status: without complication Qualified Code(s): E11.9 - Type 2 diabetes mellitus without complications; Z79.4 - skilled nursing (current) use of insulin (5) Prostate enlargement Priority: Secondary Status: Acute (6) Nephrolithiasis Priority: Secondary Status: Acute Hospital course: Mr. Castañeda is a 72 year old male with history of diabetes, tobacco abuse, hypertension, presented to ED as a transfer from the [facility] urgent care. He o riginally presented for a 7 day history of nausea/vomiting, diarrhea, and minimal flatus. In [facility] ED, a CT scan of abdomen/pelvis showed findings suggestive of small bowel obstruction. CT also showed 2 large non-obstructing calculi in left kidney, and marked enlargement of the prostate. Urology was consulted in regards to large kidney stones and marked prostate. He had a cystoscopy done at bedside by Urology, no acute intervention was needed. He is to follow-up as outpatient with Urology for further workup. A PSA was obtained and is pending. For bowel obstruction; He was observed for further treatment/monitoring. Patient was placed NPO. He did have improvement of his symptoms without any NG tube placed. Surgery was consulted and since his symptoms improved without intervention or NG tube, his diet was advanced. He tolerated diet without issue. He was stable for discharge since symptoms have resolved and tolerated diet. - Time Spent with Patient Total time spent providing and/or coordinating discharge services: - Discharge Medications Home Medications: Aspirin Enteric Coated [Aspirin EC] 81 mg PO DAILY 09/11/16 [History] Atorvastatin Calcium [Lipitor] 80 mg PO HS 09/11/16 [History] Insulin ASPART [NovoLOG] 10 unit SQ 1200 09/11/16 [History] Insulin ASPART [NovoLOG] 14 unit SQ QPM 09/11/16 [History] Insulin Glargine [Lantus] 44 unit SQ HS 09/11/16 [History] Metformin HCl [Glucophage] 1,000 mg PO BID 09/11/16 [History] Pantoprazole Sodium [Protonix] 40 mg PO DAILY 09/11/16 [History] Tramadol HCl [Ultram] 100 mg PO TID PRN 09/11/16 [History] Vit C/E/Zn/Coppr/Lutein/Zeaxan [Preservision Areds 2 Softgel] 1 cap PO BID 09/11/16 [History] cloNIDine HCl [Clonidine HCl] 0.2 mg PO BID 09/11/16 [History] metFORMIN [Glucophage] 500 mg PO 1200 09/11/16 [History] Amlodipine Besylate 10 mg PO DAILY 03/14/18 [History] Lisinopril-HCTZ 20-12.5 [Prinzide 20-12.5] 2 tab PO DAILY 03/14/18 [History] Allergies/Adverse Reactions: Allergy/AdvReac Type Severity Reaction Status Date / Time No Known Allergies Allergy Verified 09/11/16 17:13 Date of admission: 03/14/18 20:32 Primary care physician: [facility] Consults: 03/14/18 19:55 Consult to Surgery [CONS] Stat Consulting Provider: Surgery [facility] Reason for Consult: SBO Time Notified: 19:56 Call Completed: Yes 03/15/18 08:51 Consult to Urology [CONS] Routine Consulting Provider: Urology [facility] Reason for Consult: enlarged prostate,bladder impingement Time Notified: 08:52 Call Completed: Yes Discharging clinician: Bon Lemus - Constitutional Vitals: Temp Pulse Resp BP Pulse Ox 98.1 F 85 16 176/63 94 03/15/18 15:00 03/15/18 15:00 03/15/18 15:00 03/15/18 15:00 03/15/18 15:00 General appearance: Present: cooperative, A&O X 3, pleasant, no acute distress, answers questions appropriately Exam: General: He is well oriented to time place and person, not in acute distress, answering questions appropriately, lying comfortably on the bed. HEENT: MMM Abdomen: mild TTP abdomen, normal bowel sounds, soft, non-distended. + truncal obesity. Chest: Equal air entry both side, no wheezes/rhonchi and crepitation . CVS: Normal Rate and rhythm, S1-S2 normal, no murmur, no basal crackles. Extremities: No cyanosis , no edema, no calf tenderness - Patient Status Disposition: Home, Self-Care Condition: Fair Functional capacity at discharge: independent ambulation Overall status at discharge: patient is back to baseline - Discharge Instructions Follow Up With: [facility] [Outside] Forms: ED Satisfaction Letter, Work/School Release - Diet and Activity Activity: increase activity as tolerated Diet: advance to your usual diet
[2018-03-15 16:58] LABS: BUN/Creatinine Ratio 17 (6-26); Blood Urea Nitrogen 15 mg/dL (8-23); Calcium 8.3 mg/dL (8.6-10.3); Carbon Dioxide 22 mEq/L (23-29); Chloride 110 mEq/L (98-107); Glucose 208 mg/dL (70-105); Osmolality,Calculated 297 (280-300); Potassium 3.5 mEq/L (3.5-5.1); Sodium 140 mEq/L (136-145); eGFR For Non-African Americans > 60 (> 60)
[2018-03-15] MEDS ORDERED: cloNIDine HCl 0.1 MG TABLET PO SCH (21:00)
[2018-03-15] MEDS ORDERED: (Vit C/E/Zn/Coppr/Lutein/Zeaxan [Preservision Areds 2 Softgel]) PO SCH (21:00)
[2018-03-16] MEDS ORDERED: Lisinopril-HCTZ 20-12.5mg TABLET PO SCH (09:00)
[2018-03-16] MEDS ORDERED: NON-FORMULARY MEDICATION 1 EACH EACH (Pantoprazole Sodium [Protonix] 40 MG) PO SCH (09:00)
[2018-03-16] MEDS ORDERED: amLODIPine 5 MG TABLET PO SCH (09:00)
[2018-03-16] MEDS ORDERED: Aspirin Enteric Coated 81 MG Tablet PO SCH (09:00)
[2018-03-16] MEDS ORDERED: Pantoprazole 40 MG VIAL IVP SCH (09:00)
== END 2018-03-15 18:30 | disposition home or self-care (01) | DRG 390 ==
LOC: EMEROOARM 16:21 → 3ANU 16:21 → SUATTDRO 20:32 → 3ANU 20:48
PROVIDERS: ADMIT Pediatrics; ATTEND Student in an Organized Health Care Education/Training Program